=== PATIENT | male | born 1965 | race Caucasian/White ===

== ENCOUNTER 2019-07-23 19:26 | Inpatient (IN) | payer MEDICAID, OTHER ==
[~2019-07-23] VITALS: Ht 172.7 cm; Wt 80.0 kg
[~2019-07-23 19:26] MED LIST: BACL10TA PO; DILT180C66 PO; HYDR-4353 PO; LISI-600 PO; LORA10TA65 PO; MELO-100 PO; MOME17SP BOTHNARES; PANT40TA4 PO
[2019-07-23] MEDS ORDERED: normal saline 1000ML IV soln IV ONE (20:50)
[2019-07-23 21:22] LABS: BASOPHILS # (AUTO) 0.1 X10'3 (0-0.2); BASOPHILS % (AUTO) 0.6 % (0-1); EOSINOPHILS # (AUTO) 0.1 X10'3 (0-0.9); EOSINOPHILS % (AUTO) 0.5 % (0-6); HEMATOCRIT 43.1 % (42.0-52.0); HEMOGLOBIN 14.6 g/dl (14.0-17.9); LYMPHOCYTES # (AUTO) 1.7 X10'3 (1.1-4.8); MEAN CORPUSCULAR HGB CONC 33.8 g/dL (33.0-36.5); MEAN CORPUSCULAR VOLUME 88.6 FL (78-98); MEAN PLATELET VOLUME 7.7 FL (7.4-10.4); MONOCYTES # (AUTO) 1.7 X10'3 (0-0.9); MONOCYTES % (AUTO) 10.9 % (2-12); NEUTROPHILS # (AUTO) 11.9 X10'3 (1.8-7.7); PLATELET COUNT 400 X10'3 (140-440); RED BLOOD COUNT 4.87 X10'6 (4.70-6.10); RED CELL DISTRIBUTION WIDTH 14.9 % (11.5-14.5); WHITE BLOOD COUNT 15.4 X10'3 (4.5-11.0)
[2019-07-23 21:33] LABS: ALANINE AMINOTRANSFERASE 62 U/L (12-78); ALBUMIN 4.5 G/DL (3.4-5.0); ALKALINE PHOSPHATASE 88 IU/L (46-116); ANION GAP 18 (8-16); ASPARTATE AMINO TRANSFERASE 28 U/L (10-37); BILIRUBIN,TOTAL 0.5 MG/DL (0.1-1.0); BLOOD UREA NITROGEN 35 MG/DL (7-18); CALCIUM 9.3 MG/DL (8.5-10.1); CHLORIDE 95 MMOL/L (99-107); CREATININE 3.49 MG/DL (0.60-1.10); GLUCOSE 94 MG/DL (70-104); MAGNESIUM 2.2 MG/DL (1.5-2.4); POTASSIUM 4.3 MMOL/L (3.5-5.1); SODIUM 130 MMOL/L (135-145); TOTAL CARBON DIOXIDE 17.3 MMOL/L (24-32); TOTAL PROTEIN 8.9 G/DL (6.4-8.2); eGFR 19 ML/MIN
[2019-07-23] MEDS ORDERED: SIMV10TA2 PO (22:10)
[2019-07-23] MEDS ORDERED: UNABLE TO OBTAIN (22:13)
[2019-07-23] MEDS ORDERED: magnesium Cl slow-release 64mg tablet PO PRN (22:20)
[2019-07-23] MEDS ORDERED: magnesium 4gm in 100ml NS 100 ML IV PRN (22:20)
[2019-07-23] MEDS ORDERED: potassium Cl 20 mEq SR tablet PO PRN ×2 (22:20)
[2019-07-23] MEDS ORDERED: acetaminophen 325mg tablet PO PRN ×2 (22:20)
[2019-07-23] MEDS ORDERED: magnesium hydroxide 30ml (MOM) UD suspension PO PRN (22:20)
[2019-07-23] MEDS ORDERED: ondansetron/PF 4mg/2ml inj IV PRN (22:20)
[2019-07-23] MEDS ORDERED: morphine 2 MG/ML inj. syringe IV PRN ×2 (22:20)
[2019-07-23] MEDS ORDERED: mag hydrox/Alum hydrox/simeth 30ml oral suspension PO PRN (22:20)
[2019-07-23] MEDS ORDERED: potassium CL 10mEq/100ml bag 100 ML IV PRN ×2 (22:20)
[2019-07-23] MEDS ORDERED: magnesium 2GM in 50ml NS 50 ML IV PRN (22:20)
--- NOTE | 2019-07-23 22:23 | NUR ---
PT MOVED FROM CALLEJAS 12 TO BED 14. PT AWAITING HOSPITALIST
--- NOTE | 2019-07-23 22:31 | NUR ---
[facility] CALLED AND REPORTS THE ONLY RECENT MEDS PT HAS FILLED IS NORCO, TRAZADONE, GABAPENTIN. PT OTHERWISE HAD MANY OTHER MEDS THAT HAVE NOT BEEN FILLED SINCE FEBRUARY. PT REPORTS THAT HE IS HAVING INSURANCE ISSUES AND THAT IS WHY HE HAS NOT FILLED MANY OF HIS MEDS (REPORTS CREON FOR HIS PANCREAS, A HEART PILL THAT IS "ORANGE AND WHITE".
[2019-07-23] MEDS: normal saline 1000ml 1,000 ML IV SCH (23:01)
--- NOTE | 2019-07-23 23:30 | NUR ---
I have received report from Cal VILLANUEVA and had the opportunity to ask questions and assume patient care.
[2019-07-23 23:45] VITALS: BP 145/78
[2019-07-24] MEDS ORDERED: fluticasone nasal spray 16GM bottle NS PRN (01:05)
[2019-07-24] MEDS ORDERED: baclofen 10mg tablet PO PRN (01:15)
[2019-07-24 01:39] LABS: CLARITY,URINE CLEAR (Clear); COLOR,URINE YELLOW (Yellow); GLUCOSE, URINE 100 mg/dl (Neg); KETONES,URINE 15 mg/dl (Neg); LEUKOCYTE ESTERASE ,URINE NEGATIVE (Neg); NITRITES, URINE NEGATIVE (Neg); OCCULT BLOOD,URINE TRACE-INTACT (Neg); PH,URINE 5.5 (4.8-8.0); PROTEIN,URINE NEGATIVE (Neg); UROBILINOGEN,URINE 0.2 E.U/dL (0.2-1.0)
[2019-07-24 01:40] LABS: UA COLLECTION TYPE URINAL
[2019-07-24 01:47] LABS: BACTERIA,URINE NONE SEEN /HPF (Neg); RBC,URINE 0-2 /HPF (0-2); WBC,URINE NONE SEEN /HPF (0-4)
[2019-07-24 01:48] LABS: SQUAMOUS EPITHELIAL CELL,UR FEW /LPF (FEW); TOTAL PROTEIN,URINE RANDOM 27.8 MG/DL
[2019-07-24 02:04] LABS: UA EOSINOPHILS NO EOS /HPF
[2019-07-24 05:50] LABS: BASOPHILS # (AUTO) 0.1 X10'3 (0-0.2); BASOPHILS % (AUTO) 0.5 % (0-1); EOSINOPHILS % (AUTO) 0.2 % (0-6); HEMATOCRIT 37.6 % (42.0-52.0); HEMOGLOBIN 12.8 g/dl (14.0-17.9); LYMPHOCYTES # (AUTO) 0.8 X10'3 (1.1-4.8); LYMPHOCYTES % (AUTO) 7.4 % (21-51); MEAN CORPUSCULAR HEMOGLOBIN 30.3 PG (27.0-31.0); MEAN CORPUSCULAR HGB CONC 33.9 g/dL (33.0-36.5); MEAN CORPUSCULAR VOLUME 89.5 FL (78-98); MEAN PLATELET VOLUME 7.9 FL (7.4-10.4); MONOCYTES # (AUTO) 0.9 X10'3 (0-0.9); MONOCYTES % (AUTO) 8.8 % (2-12); NEUTROPHILS % (AUTO) 83.1 % (42-75); PLATELET COUNT 306 X10'3 (140-440); RED CELL DISTRIBUTION WIDTH 14.6 % (11.5-14.5); WHITE BLOOD COUNT 10.8 X10'3 (4.5-11.0)
[2019-07-24 06:00] VITALS: BP 117/59
[2019-07-24 06:16] LABS: ALBUMIN 3.6 G/DL (3.4-5.0); ANION GAP 16 (8-16); BLOOD UREA NITROGEN 29 MG/DL (7-18); BUN/CREATININE RATIO 11.2 (5.4-32.0); CALCIUM 9.5 MG/DL (8.5-10.1); CHLORIDE 103 MMOL/L (99-107); CREATININE 2.58 MG/DL (0.60-1.10); GLUCOSE 97 MG/DL (70-104); MAGNESIUM 2.4 MG/DL (1.5-2.4); POTASSIUM 3.8 MMOL/L (3.5-5.1); SODIUM 138 MMOL/L (135-145); TOTAL CARBON DIOXIDE 19.2 MMOL/L (24-32); eGFR 26 ML/MIN
--- NOTE | 2019-07-24 06:28 | NUR ---
Problems reprioritized. Patient report given, questions answered & plan of care reviewed with Jazmyn VILLANUEVA.
--- NOTE | 2019-07-24 06:34 | NUR ---
Patient in room ORTHO 4013. I have received report from Patricia and had the opportunity to ask questions and assume patient care.
[2019-07-24] MEDS: K and/or MAG REPLACEMENT MC SCH (08:00)
[2019-07-24] MEDS: heparin, porcine 5000 units/ml vial SQ SCH ×2 (08:00→21:53)
[2019-07-24] MEDS: normal saline 1000ml 1,000 ML IV SCH ×2 (08:54→21:53)
[2019-07-24] MEDS: diltiazem 30mg tablet PO SCH ×3 (09:03→21:52)
[2019-07-24] MEDS: loratadine 10mg tablet PO SCH (09:04)
[2019-07-24] MEDS: pantoprazole 40mg Tablet.DR PO SCH (09:05)
[2019-07-24] MEDS: HYDROcodone/acetaminophen 5mg/325mg tablet PO PRN ×2 (09:08→21:53)
[2019-07-24 10:00] VITALS: BP 132/73
[2019-07-24] MEDS ORDERED: FLU VACC QS2019-20 36MOS UP/PF 60 MCG/0.5 ML SYRINGE IMVAC ONE (10:00)
--- NOTE | 2019-07-24 12:16 | NUR ---
Patient report given, questions answered & plan of care reviewed with
--- NOTE | 2019-07-24 12:22 | NUR ---
Student Medication Administration:For this medication-pass time frame 5998-0658, all medications were reviewed,administered and documented per hospital policy by Trina Dutton. Student documentation:I have reviewed and agree with all interventions, assessments performed and documented by Trina Dutton.
[2019-07-24 18:00] VITALS: BP 146/87
[2019-07-24] MEDS ORDERED: atorvastatin 10mg tablet PO SCH (21:00)
[2019-07-24 22:00] VITALS: BP 155/99
[2019-07-25] MEDS: normal saline 1000ml 1,000 ML IV SCH (04:48)
--- NOTE | 2019-07-25 05:10 | NUR ---
FLU vaccine given to patient this morning to the right deltoid.
[2019-07-25 06:00] VITALS: BP 154/90
[2019-07-25 06:59] LABS: BASOPHILS # (AUTO) 0.1 X10'3 (0-0.2); EOSINOPHILS # (AUTO) 0.2 X10'3 (0-0.9); EOSINOPHILS % (AUTO) 2.4 % (0-6); HEMATOCRIT 37.4 % (42.0-52.0); HEMOGLOBIN 12.5 g/dl (14.0-17.9); LYMPHOCYTES # (AUTO) 1.7 X10'3 (1.1-4.8); LYMPHOCYTES % (AUTO) 24.6 % (21-51); MEAN CORPUSCULAR HEMOGLOBIN 30.1 PG (27.0-31.0); MEAN CORPUSCULAR HGB CONC 33.5 g/dL (33.0-36.5); MEAN PLATELET VOLUME 8.5 FL (7.4-10.4); MONOCYTES # (AUTO) 0.8 X10'3 (0-0.9); MONOCYTES % (AUTO) 11.3 % (2-12); NEUTROPHILS # (AUTO) 4.2 X10'3 (1.8-7.7); NEUTROPHILS % (AUTO) 60.7 % (42-75); PLATELET COUNT 315 X10'3 (140-440); RED BLOOD COUNT 4.16 X10'6 (4.70-6.10); RED CELL DISTRIBUTION WIDTH 14.8 % (11.5-14.5); WHITE BLOOD COUNT 6.9 X10'3 (4.5-11.0)
--- NOTE | 2019-07-25 07:00 | NUR ---
Patient in room ORTHO 4013. I have received report from Krissy VILLANUEVA and had the opportunity to ask questions and assume patient care.
[2019-07-25 07:13] LABS: ALBUMIN 3.3 G/DL (3.4-5.0); ANION GAP 12 (8-16); BLOOD UREA NITROGEN 21 MG/DL (7-18); BUN/CREATININE RATIO 14.8 (5.4-32.0); CALCIUM 9.1 MG/DL (8.5-10.1); CHLORIDE 105 MMOL/L (99-107); CREATININE 1.42 MG/DL (0.60-1.10); GLUCOSE 90 MG/DL (70-104); MAGNESIUM 2.2 MG/DL (1.5-2.4); POTASSIUM 3.8 MMOL/L (3.5-5.1); SODIUM 138 MMOL/L (135-145); TOTAL CARBON DIOXIDE 20.8 MMOL/L (24-32); eGFR 52 ML/MIN
[2019-07-25] MEDS: pantoprazole 40mg Tablet.DR PO SCH (07:59)
[2019-07-25] MEDS: diltiazem 30mg tablet PO SCH ×2 (07:59→14:58)
[2019-07-25] MEDS: loratadine 10mg tablet PO SCH (07:59)
[2019-07-25] MEDS: K and/or MAG REPLACEMENT MC SCH (08:00)
[2019-07-25] MEDS: heparin, porcine 5000 units/ml vial SQ SCH (08:01)
[2019-07-25 10:00] VITALS: BP 146/93
[2019-07-25 11:22] VITALS: BP 138/96
--- NOTE | 2019-07-25 11:26 | NUR ---
Student documentation: I have reviewed all interventions, assessments performed and documented by Jostin Urias. Student Medication Administration: For this medication-pass time frame, all medication were reviewed, dispensed, administered and documented per hospital policy by Jostin Urias.
[2019-07-25 13:43] LABS: ALBUMIN 3.8 G/DL (3.4-5.0); ANION GAP 12 (8-16); BLOOD UREA NITROGEN 16 MG/DL (7-18); BUN/CREATININE RATIO 12.1 (5.4-32.0); CALCIUM 9.3 MG/DL (8.5-10.1); CHLORIDE 104 MMOL/L (99-107); CREATININE 1.32 MG/DL (0.60-1.10); GLUCOSE 94 MG/DL (70-104); POTASSIUM 3.8 MMOL/L (3.5-5.1); SODIUM 137 MMOL/L (135-145); TOTAL CARBON DIOXIDE 21.3 MMOL/L (24-32); eGFR 57 ML/MIN
--- NOTE | 2019-07-25 17:04 | NUR ---
patient discharged, IV taken out, went over discharge information, wheeled out by wheelchair in stable condition.
== END 2019-07-25 17:00 | disposition home or self-care (01) | DRG 682 ==
LOC: ER 19:27 → ORTHO 4S 22:32 → CMPBEDREQ 23:08
PROVIDERS: ADMIT Hospitalist; ATTEND Family Medicine
DX: N17.0 Acute kidney failure with tubular necrosis (principal); G93.41 Metabolic encephalopathy; J90 Pleural effusion, not elsewhere classified; E87.1 Hypo-osmolality and hyponatremia; D72.823 Leukemoid reaction; D72.829 Elevated white blood cell count, unspecified; E78.00 Pure hypercholesterolemia, unspecified; E78.5 Hyperlipidemia, unspecified; E86.0 Dehydration; I10 Essential (primary) hypertension; K57.90 Diverticulosis of intestine, part unspecified, without perforation or abscess without bleeding; F12.90 Cannabis use, unspecified, uncomplicated; G89.29 Other chronic pain; M54.2 Cervicalgia; M54.9 Dorsalgia, unspecified; Z87.442 Personal history of urinary calculi; Z23 Encounter for immunization; Z79.899 Other long term (current) drug therapy
CPT/HCPCS: 36415; 70551; 71045; 76775; 80048; 80053; 81001; 82570; 83735; 83935; 84156; 84300; 85025; 87081; 87207; 93306; 93880; 99285; G0378; J1644; J7030; Q2037

== ENCOUNTER 2020-08-12 12:07 | Inpatient (IN) | payer MEDICAID ==
[~2020-08-12] VITALS: Ht 172.7 cm; Wt 97.2 kg
[~2020-08-12 12:07] MED LIST changes: -MELO-100 PO; -PANT40TA4 PO; +PANT40TA54 PO; +SIMV10TA2 PO; +etomidate 2mg/ml inj. ONE; +rocuronium 10mg/ml inj IV ONE
[2020-08-12 12:57] LABS: BASOPHILS # (AUTO) 0.3 X10'3 (0-0.2); BASOPHILS % (AUTO) 0.9 % (0-1); EOSINOPHILS % (AUTO) 0 % (0-6); HEMATOCRIT 34.6 % (42.0-52.0); HEMOGLOBIN 11.3 g/dl (14.0-17.9); LYMPHOCYTES # (AUTO) 0.6 X10'3 (1.1-4.8); LYMPHOCYTES % (AUTO) 1.9 % (21-51); MEAN CORPUSCULAR HEMOGLOBIN 28.3 PG (27.0-31.0); MEAN CORPUSCULAR HGB CONC 32.7 g/dL (33.0-36.5); MEAN CORPUSCULAR VOLUME 86.5 FL (78-98); MEAN PLATELET VOLUME 7.8 FL (7.4-10.4); MONOCYTES # (AUTO) 1.3 X10'3 (0-0.9); MONOCYTES % (AUTO) 4.3 % (2-12); NEUTROPHILS # (AUTO) 29.2 X10'3 (1.8-7.7); NEUTROPHILS % (AUTO) 92.9 % (42-75); PLATELET COUNT 543 X10'3 (140-440); RED CELL DISTRIBUTION WIDTH 18.6 % (11.5-14.5)
[2020-08-12 12:59] LABS: WHITE BLOOD COUNT 31.5 X10'3 (4.5-11.0)
[2020-08-12] MEDS ORDERED: CefTRIAXone/D5W-Rocephin 1gm 50 ML IV ONE (13:05)
[2020-08-12] MEDS ORDERED: azithromycin/NS 500mg/250ml 250 ML IV ONE (13:05)
[2020-08-12] MEDS ORDERED: normal saline 1000ML IV soln IVB ONE (13:05)
[2020-08-12 13:15] LABS: ALANINE AMINOTRANSFERASE 39 U/L (12-78); ALBUMIN 3.8 G/DL (3.4-5.0); ALBUMIN/GLOBULIN RATIO 0.7 (1.1-1.5); ALKALINE PHOSPHATASE 111 IU/L (46-116); ANION GAP 21 (8-16); ASPARTATE AMINO TRANSFERASE 67 U/L (10-37); BILIRUBIN,TOTAL 0.4 MG/DL (0.1-1.0); BLOOD UREA NITROGEN 47 MG/DL (7-18); BUN/CREATININE RATIO 7.7 (5.4-32.0); CALCIUM 9.8 MG/DL (8.5-10.1); CHLORIDE 87 MMOL/L (99-107); GLUCOSE 142 MG/DL (70-104); POTASSIUM 4.7 MMOL/L (3.5-5.1); SODIUM 128 MMOL/L (135-145); TOTAL CARBON DIOXIDE 20.5 MMOL/L (24-32); TOTAL PROTEIN 9.1 G/DL (6.4-8.2); eGFR 10 ML/MIN
[2020-08-12 13:24] LABS: ANISOCYTOSIS 2+; BANDS% (MANUAL) 12 % (0-10); LARGE PLATELETS FEW; LYMPHOCYTES % (MANUAL) 1 % (21-51); METAMYLEOCYTES% (MANUAL) 1 % (0-0); MONOCYTES % (MANUAL) 5 % (2-12); NEUTROPHILS % (MANUAL) 81 % (42-75); PLATELET ESTIMATE INCREASED; TOTAL CELLS COUNTED 100
--- NOTE | 2020-08-12 13:50 | NUR ---
RT AT BEDSIDE TO OBTAIN ABG, BIPAP IN PLACE FIO2 50%, SPO2 99%.
[2020-08-12 14:01] LABS: ABG BASE EXCESS -6.4 mmol/L (-2.0-2.0); ABG HCO3 17.5 mmol/L (22.0-26.0); ABG PO2 (T) 79.6 mmHg (75.0-100.0); FCOHb 0.3 % (0.0-3.9); FMetHb 0.1 % (0.0-1.5); FO2Hb 93.6 % (94-97); RESPIRATORY RATE 20 b/min; TIDAL VOLUME 621 mL; TOTAL HEMOGLOBIN 11.6 G/dl (14.0-18.0)
--- NOTE | 2020-08-12 14:16 | NUR ---
EX [facility]IMARY CONTACT [phone].
--- NOTE | 2020-08-12 14:19 | NUR ---
ABG RESULTS GIVEN TO DR. DURAN. PER DR. DURAN PATIENT DOES NOT NEED BIPAP. PATIENT PLACED ON 5L NC, SPO2 IN MID TO HIGH 90'S. NO SOB OR DISTRESS NOTED.
--- NOTE | 2020-08-12 14:37 | NUR ---
BIPAP TAKEN OFF BY DR DURAN AND PLACED ON O2 6L NC. MOMENTS LATER PATIENT SPO2 88%, AND STATED HE KEEPS "PASSING OUT". PLACED BACK ON BIPAP FIO2 50%, SPO2 97%. DR DURAN MADE AWARE.
[2020-08-12] MEDS ORDERED: LIPA1CAP18 PO (14:47)
[2020-08-12] MEDS ORDERED: GABA300C PO (14:47)
[2020-08-12] MEDS ORDERED: FLUT9.9S3 (14:47)
[2020-08-12] MEDS ORDERED: PANT-47 PO (14:47)
[2020-08-12] MEDS ORDERED: BACL10TA7 PO (14:47)
[2020-08-12] MEDS ORDERED: TRAZ-251 PO (14:47)
[2020-08-12] MEDS ORDERED: NORT25CA PO (14:47)
[2020-08-12] MEDS ORDERED: LORA10TA7 PO (14:47)
[2020-08-12] MEDS ORDERED: HYDR-3973 PO (14:47)
[2020-08-12] MEDS ORDERED: LISI-600 PO (14:47)
[2020-08-12] MEDS ORDERED: HYDR25TA4 PO (14:47)
[2020-08-12] MEDS ORDERED: SIMV-42 PO (14:47)
[2020-08-12] MEDS ORDERED: dextrose 50%-water 50ml dispensing syringe IV PRN (14:50)
[2020-08-12] MEDS ORDERED: magnesium Cl slow-release 64mg tablet PO PRN (14:50)
[2020-08-12] MEDS ORDERED: magnesium 4gm in 100ml NS 100 ML IV PRN (14:50)
[2020-08-12] MEDS ORDERED: ondansetron/PF 4mg/2ml inj IV PRN (14:50)
[2020-08-12] MEDS ORDERED: thiamine 100mg/ml 2ml inj. IV ONE (14:50)
[2020-08-12] MEDS ORDERED: magnesium 2GM in 50ml NS 50 ML IV PRN (14:50)
[2020-08-12] MEDS ORDERED: potassium CL 10mEq/100ml bag 100 ML IV PRN ×2 (14:50)
[2020-08-12] MEDS ORDERED: LORazepam 1 MG tablet PO PRN (14:50)
[2020-08-12] MEDS ORDERED: haloperidol 5mg tablet PO PRN (14:50)
[2020-08-12] MEDS ORDERED: potassium Cl 20 mEq SR tablet PO PRN (14:50)
[2020-08-12] MEDS ORDERED: acetaminophen 325mg tablet PO PRN (14:50)
[2020-08-12] MEDS ORDERED: haloperidol lactate 5mg/ml inj IM PRN (14:50)
[2020-08-12] MEDS: normal saline 1000ml 1,000 ML IV SCH (15:37)
--- NOTE | 2020-08-12 16:31 | NUR ---
Called ED for report, was told they would have to call me back.
--- NOTE | 2020-08-12 16:40 | NUR ---
promotional table spacer PAGER ID: [phone] MESSAGE: Rm [id number], Sudhir. Pt is coming up from ED on Bipap and we need an order for the floor please. Thank you, Britt [phone]
--- NOTE | 2020-08-12 17:27 | NUR ---
PAGER ID: [phone] MESSAGE: [id number], Sudhir. Pt O2sat down to 60s placed on mask and RT evaluated and needs Bipap, Can you please put in a Bipap order for the floor priya. Britt [phone]
--- NOTE | 2020-08-12 17:35 | NUR ---
promotional table spacer PAGER ID: [phone] MESSAGE: Clarence [id number]. Would you like an ABG for this patient going on Bipap? Britt [phone]
[2020-08-12] MEDS ORDERED: vancomycin/NS 1 GM ADD-VANTAGE 250 ML X 1 DOSE IV ONE (17:40)
[2020-08-12] MEDS ORDERED: vancomycin/NS 1 GM ADD-VANTAGE 250 ML IV PRN (17:40)
[2020-08-12] MEDS ORDERED: furosemide 40mg/4ml inj IV ONE (17:55)
--- NOTE | 2020-08-12 18:36 | NUR ---
Problems reprioritized. Patient report given, questions answered & plan of care reviewed with Trang VILLANUEVA.
--- NOTE | 2020-08-12 18:50 | NUR ---
Patient in room PCU 3018. I have received report from Britt VILLANUEVA and had the opportunity to ask questions and assume patient care.
[2020-08-12 19:06] LABS: ABG HCO3 18.1 mmol/L (22.0-26.0); ABG OXYGEN SATURATION 93.2 % (94-97); ABG PCO2 (T) 30.7 mmHg (35.0-48.0); ABG PO2 (T) 71.3 mmHg (75.0-100.0); ALLEN'S TEST POSITIVE; FCOHb 0.3 % (0.0-3.9); FMetHb 0.2 % (0.0-1.5); FO2Hb 92.7 % (94-97); PATIENT TEMPERATURE 36.8; RESPIRATORY RATE 16 b/min; TOTAL HEMOGLOBIN 11.1 G/dl (14.0-18.0)
[2020-08-12 19:20] VITALS: BP 139/77
[2020-08-12] MEDS: heparin, porcine 5000 units/ml vial SQ SCH (19:33)
[2020-08-12] MEDS: docusate sod 100mg capsule PO SCH (19:47)
[2020-08-12 20:00] VITALS: BP 131/82
[2020-08-12] MEDS: K and/or MAG REPLACEMENT MC SCH (20:00)
[2020-08-12 22:00] VITALS: BP 136/73
[2020-08-12] MEDS: HYDROcodone/acetaminophen 5mg/325mg tablet PO PRN (22:47)
[2020-08-13] VITALS (7 sets, daily range): BP systolic 114–144; BP diastolic 59–80
[2020-08-13] MEDS ORDERED: piperacillin/tazo 3.375gm/50ml 50 ML IV SCH
[2020-08-13] MEDS: normal saline 1000ml 1,000 ML IV SCH ×3 (01:35→20:50)
[2020-08-13] MEDS: piperacillin/tazo 3.375gm/50ml 50 ML IV SCH ×3 (01:35→17:04)
--- NOTE | 2020-08-13 02:25 | NUR ---
Problems reprioritized. Patient report given, questions answered & plan of care reviewed with Rosy VILLANUEVA.
[2020-08-13] MEDS: VANCOMYCIN LEVEL IV SCH (02:27)
--- NOTE | 2020-08-13 02:30 | NUR ---
Received report from Mili VILLANUEVA. Will assume patient care.
[2020-08-13] MEDS: morphine 2 MG/ML inj. syringe IV PRN ×2 (03:37→15:24)
[2020-08-13 05:45] LABS: BASOPHILS % (AUTO) 0.2 % (0-1); EOSINOPHILS # (AUTO) 0.1 X10'3 (0-0.9); EOSINOPHILS % (AUTO) 0.4 % (0-6); HEMATOCRIT 32.2 % (42.0-52.0); HEMOGLOBIN 10.5 g/dl (14.0-17.9); LYMPHOCYTES # (AUTO) 0.7 X10'3 (1.1-4.8); LYMPHOCYTES % (AUTO) 3.3 % (21-51); MEAN CORPUSCULAR HEMOGLOBIN 28.3 PG (27.0-31.0); MEAN CORPUSCULAR HGB CONC 32.6 g/dL (33.0-36.5); MEAN CORPUSCULAR VOLUME 86.9 FL (78-98); MEAN PLATELET VOLUME 7.9 FL (7.4-10.4); MONOCYTES # (AUTO) 1.3 X10'3 (0-0.9); MONOCYTES % (AUTO) 6.2 % (2-12); NEUTROPHILS # (AUTO) 19.5 X10'3 (1.8-7.7); NEUTROPHILS % (AUTO) 89.9 % (42-75); PLATELET COUNT 464 X10'3 (140-440); WHITE BLOOD COUNT 21.7 X10'3 (4.5-11.0)
[2020-08-13] MEDS ORDERED: ipratropium/albuterol 3ml nebule NEB PRN (05:55)
[2020-08-13 06:03] LABS: ALBUMIN 3.1 G/DL (3.4-5.0); ANION GAP 19 (8-16); BLOOD UREA NITROGEN 45 MG/DL (7-18); BUN/CREATININE RATIO 12.8 (5.4-32.0); CALCIUM 9.3 MG/DL (8.5-10.1); CHLORIDE 96 MMOL/L (99-107); CREATININE 3.52 MG/DL (0.60-1.10); GLUCOSE 85 MG/DL (70-104); MAGNESIUM 2.2 MG/DL (1.5-2.4); POTASSIUM 3.7 MMOL/L (3.5-5.1); SODIUM 136 MMOL/L (135-145); TOTAL CARBON DIOXIDE 21.1 MMOL/L (24-32); eGFR 18 ML/MIN
--- NOTE | 2020-08-13 06:05 | NUR ---
Problems reprioritized. Patient report given, questions answered & plan of care reviewed with Alexander VILLANUEVA.
--- NOTE | 2020-08-13 06:13 | NUR ---
Problems reprioritized. Patient report given, questions answered & plan of care reviewed with Rosy VILLANUEVA.
[2020-08-13] MEDS: docusate sod 100mg capsule PO SCH ×2 (07:55→19:13)
[2020-08-13] MEDS: pantoprazole 40mg Tablet.DR PO SCH (07:55)
[2020-08-13] MEDS: heparin, porcine 5000 units/ml vial SQ SCH ×2 (07:56→19:15)
[2020-08-13] MEDS: LIPASE/PROTEASE/AMYLASE 16,800 UNIT CAPSULE.DR PO SCH ×4 (08:00→20:27)
[2020-08-13] MEDS: K and/or MAG REPLACEMENT MC SCH ×2 (08:00→19:19)
--- NOTE | 2020-08-13 15:30 | NUR ---
Page sent to Dr. Stevneson: PAGER ID: [phone] MESSAGE: [id number] Adeel Peguero: Patient's HR is 120's 130's, no cardiac meds have been given, please advise. Loreta Ayala [phone] Addendum: 08/13/20 at 1837 by Loreta Main RN Received verbal orders to change RT treatment medication from albuterol to xopenex
--- NOTE | 2020-08-13 18:10 | NUR ---
Problems reprioritized. Patient report given, questions answered & plan of care reviewed with Luciana VILLANUEVA.
--- NOTE | 2020-08-13 18:12 | NUR ---
Patient in room PCU 3018. I have received report from Loreta VILLANUEVA and had the opportunity to ask questions and assume patient care.
[2020-08-13 18:53] LABS: CLARITY,URINE SLIGHTLY CLOUDY (Clear); COLOR,URINE YELLOW (Yellow); GLUCOSE, URINE NEGATIVE (Neg); KETONES,URINE NEGATIVE (Neg); LEUKOCYTE ESTERASE ,URINE NEGATIVE (Neg); NITRITES, URINE NEGATIVE (Neg); OCCULT BLOOD,URINE MODERATE (Neg); PH,URINE 5.5 (4.8-8.0); PROTEIN,URINE 30 mg/dl (Neg); UROBILINOGEN,URINE 0.2 E.U/dL (0.2-1.0)
[2020-08-13 18:59] LABS: UA COLLECTION TYPE CLN CATCH MIDSTREAM
[2020-08-13 19:12] LABS: BACTERIA,URINE NONE SEEN /HPF (Neg); RBC,URINE 0-2 /HPF (0-2); SQUAMOUS EPITHELIAL CELL,UR FEW /LPF (FEW); WBC,URINE NONE SEEN /HPF (0-4)
[2020-08-13] MEDS: lactobacillus rhamnosus 10,000 MMU CELLS/CAPSULE PO SCH (19:13)
[2020-08-13] MEDS: levalbuterol 0.63mg/3ml nebule IH SCH (19:53)
[2020-08-13] MEDS: traZODone 50mg tablet PO SCH (20:27)
[2020-08-13] MEDS: atorvastatin 10mg tablet PO SCH (20:27)
[2020-08-14] VITALS (7 sets, daily range): BP systolic 141–166; BP diastolic 86–107
[2020-08-14] MEDS: piperacillin/tazo 3.375gm/50ml 50 ML IV SCH ×3 (00:14→16:09)
[2020-08-14] MEDS: VANCOMYCIN LEVEL IV SCH (02:42)
[2020-08-14] MEDS: levalbuterol 0.63mg/3ml nebule IH SCH ×4 (03:00→21:56)
[2020-08-14 05:53] LABS: BASOPHILS # (AUTO) 0.1 X10'3 (0-0.2); BASOPHILS % (AUTO) 0.4 % (0-1); EOSINOPHILS % (AUTO) 0.1 % (0-6); HEMATOCRIT 33.3 % (42.0-52.0); HEMOGLOBIN 10.9 g/dl (14.0-17.9); LYMPHOCYTES # (AUTO) 0.6 X10'3 (1.1-4.8); LYMPHOCYTES % (AUTO) 3.1 % (21-51); MEAN CORPUSCULAR HEMOGLOBIN 28.7 PG (27.0-31.0); MEAN CORPUSCULAR HGB CONC 32.6 g/dL (33.0-36.5); MEAN CORPUSCULAR VOLUME 88.1 FL (78-98); MEAN PLATELET VOLUME 7.7 FL (7.4-10.4); MONOCYTES % (AUTO) 5.6 % (2-12); NEUTROPHILS # (AUTO) 16.4 X10'3 (1.8-7.7); NEUTROPHILS % (AUTO) 90.8 % (42-75); PLATELET COUNT 453 X10'3 (140-440); RED BLOOD COUNT 3.78 X10'6 (4.70-6.10); RED CELL DISTRIBUTION WIDTH 18.6 % (11.5-14.5); WHITE BLOOD COUNT 18.1 X10'3 (4.5-11.0)
[2020-08-14 06:01] LABS: ALBUMIN 2.9 G/DL (3.4-5.0); ANION GAP 20 (8-16); BLOOD UREA NITROGEN 36 MG/DL (7-18); BUN/CREATININE RATIO 20.3 (5.4-32.0); CALCIUM 9.7 MG/DL (8.5-10.1); CHLORIDE 98 MMOL/L (99-107); CREATININE 1.77 MG/DL (0.60-1.10); GLUCOSE 109 MG/DL (70-104); LACTATE DEHYDROGENASE 609 U/L (85-227); MAGNESIUM 2.1 MG/DL (1.5-2.4); POTASSIUM 3.4 MMOL/L (3.5-5.1); SODIUM 139 MMOL/L (135-145); TOTAL CARBON DIOXIDE 21.3 MMOL/L (24-32); VANCOMYCIN,TROUGH 5.2 UG/ML (6.0-14.0); eGFR 40 ML/MIN
--- NOTE | 2020-08-14 06:20 | NUR ---
Patient in room PCU 3018. I have received report from Luciana VILLANUEVA and had the opportunity to ask questions and assume patient care.
--- NOTE | 2020-08-14 06:25 | NUR ---
Patient in room PCU 3018. I have received report from Luciana VILLANUEVA and had the opportunity to ask questions and assume patient care.
[2020-08-14] MEDS: normal saline 1000ml 1,000 ML IV SCH (06:50)
[2020-08-14 07:14] LABS: ANISOCYTOSIS 2+; PLATELET ESTIMATE INCREASED
[2020-08-14] MEDS: heparin, porcine 5000 units/ml vial SQ SCH ×2 (07:41→20:26)
[2020-08-14] MEDS: lactobacillus rhamnosus 10,000 MMU CELLS/CAPSULE PO SCH ×2 (07:42→20:26)
[2020-08-14] MEDS: LIPASE/PROTEASE/AMYLASE 16,800 UNIT CAPSULE.DR PO SCH ×4 (07:42→20:27)
[2020-08-14] MEDS: docusate sod 100mg capsule PO SCH ×2 (07:42→20:00)
[2020-08-14] MEDS: pantoprazole 40mg Tablet.DR PO SCH (07:42)
[2020-08-14] MEDS: potassium Cl 20 mEq SR tablet PO PRN ×4 (07:42→20:28)
[2020-08-14] MEDS: K and/or MAG REPLACEMENT MC SCH ×2 (08:20→20:28)
[2020-08-14] MEDS ORDERED: vancomycin/NS 1 GM ADD-VANTAGE 250 ML IV SCH (09:00)
--- NOTE | 2020-08-14 09:07 | NUR ---
I TOOK PATIENT OFF OF BIPAP AND APPLIED OXYGEN VIA NC. OXYGEN SATURATION WAS FLUCTUATING BETWEEN 81-88, SO BIPAP WAS REAPPLIED AND OXYGEN SATURATION IMPROVED TO 99.. Addendum: 08/14/20 at 0910 by Kellie Vidal RN Amended: Links added.
[2020-08-14 09:24] LABS: TOTAL PROTEIN,URINE RANDOM 101.4 MG/DL
[2020-08-14] MEDS: morphine 2 MG/ML inj. syringe IV PRN (09:49)
[2020-08-14] MEDS: LORazepam 2 mg/ml vial IV PRN (12:27)
[2020-08-14] MEDS: loratadine 10mg tablet PO SCH (13:35)
[2020-08-14] MEDS: nortriptyline 25mg capsule PO SCH (13:36)
[2020-08-14] MEDS: lisinopril 20mg tablet PO SCH (13:38)
--- NOTE | 2020-08-14 18:00 | NUR ---
Orientee documentation: I have reviewed and agree with all interventions, assessments performed and documented by Kellie VILLANUEVA.
--- NOTE | 2020-08-14 18:15 | NUR ---
Problems reprioritized. Patient report given, questions answered & plan of care reviewed with Luciana VILLANUEVA.
--- NOTE | 2020-08-14 18:39 | NUR ---
Patient in room PCU 3018. I have received report from Danny VILLANUEVA and had the opportunity to ask questions and assume patient care.
[2020-08-14] MEDS: gabapentin 300mg capsule PO SCH (20:26)
[2020-08-14] MEDS: atorvastatin 10mg tablet PO SCH (20:27)
[2020-08-14] MEDS: traZODone 50mg tablet PO SCH (20:27)
[2020-08-15] MEDS: piperacillin/tazo 3.375gm/50ml 50 ML IV SCH ×3 (00:50→15:53)
[2020-08-15] MEDS ORDERED: carvedilol 6.25mg tablet PO ONE (01:15)
[2020-08-15 02:00] VITALS: BP 140/111
[2020-08-15] MEDS: levalbuterol 0.63mg/3ml nebule IH SCH ×4 (02:41→20:39)
--- NOTE | 2020-08-15 04:09 | NUR ---
Blood pressure and heart rate high, discussed with Dr. Cardenas. Coreg ordered.
[2020-08-15 06:00] VITALS: BP 160/100
--- NOTE | 2020-08-15 06:15 | NUR ---
Patient in room PCU 3018. I have received report from Luciana VILLANUEVA and had the opportunity to ask questions and assume patient care.
[2020-08-15 06:28] LABS: ALBUMIN 2.9 G/DL (3.4-5.0); BLOOD UREA NITROGEN 36 MG/DL (7-18); BUN/CREATININE RATIO 23.2 (5.4-32.0); CALCIUM 10.1 MG/DL (8.5-10.1); CREATININE 1.55 MG/DL (0.60-1.10); GLUCOSE 136 MG/DL (70-104); MAGNESIUM 2.2 MG/DL (1.5-2.4); TOTAL CARBON DIOXIDE 21.8 MMOL/L (24-32); eGFR 47 ML/MIN
--- NOTE | 2020-08-15 06:28 | NUR ---
Problems reprioritized. Patient report given, questions answered & plan of care reviewed with Danny VILLANUEVA and Kellie VILLANUEVA.
[2020-08-15 06:31] LABS: BASOPHILS % (AUTO) 0.1 % (0-1); EOSINOPHILS % (AUTO) 0.1 % (0-6); HEMATOCRIT 32.6 % (42.0-52.0); HEMOGLOBIN 10.6 g/dl (14.0-17.9); LYMPHOCYTES # (AUTO) 0.9 X10'3 (1.1-4.8); MEAN CORPUSCULAR HEMOGLOBIN 28.8 PG (27.0-31.0); MEAN CORPUSCULAR HGB CONC 32.6 g/dL (33.0-36.5); MEAN CORPUSCULAR VOLUME 88.6 FL (78-98); MEAN PLATELET VOLUME 7.9 FL (7.4-10.4); MONOCYTES # (AUTO) 1.7 X10'3 (0-0.9); MONOCYTES % (AUTO) 7.3 % (2-12); NEUTROPHILS # (AUTO) 20.7 X10'3 (1.8-7.7); NEUTROPHILS % (AUTO) 88.5 % (42-75); PLATELET COUNT 402 X10'3 (140-440); RED BLOOD COUNT 3.68 X10'6 (4.70-6.10); RED CELL DISTRIBUTION WIDTH 18.8 % (11.5-14.5); WHITE BLOOD COUNT 23.4 X10'3 (4.5-11.0)
[2020-08-15 06:47] LABS: ANION GAP 16 (8-16); CHLORIDE 104 MMOL/L (99-107); POTASSIUM 3.9 MMOL/L (3.5-5.1); SODIUM 142 MMOL/L (135-145)
--- NOTE | 2020-08-15 06:49 | NUR ---
Patient in room PCU 3018. I have received report from Luciana VILLANUEVA and had the opportunity to ask questions and assume patient care.
[2020-08-15] MEDS: fluticasone nasal spray 16GM bottle NS SCH (07:34)
[2020-08-15] MEDS: heparin, porcine 5000 units/ml vial SQ SCH ×2 (07:36→19:28)
[2020-08-15] MEDS: nortriptyline 25mg capsule PO SCH (07:37)
[2020-08-15] MEDS: LIPASE/PROTEASE/AMYLASE 16,800 UNIT CAPSULE.DR PO SCH ×2 (07:37→12:44)
[2020-08-15] MEDS: pantoprazole 40mg Tablet.DR PO SCH (07:37)
[2020-08-15] MEDS: gabapentin 300mg capsule PO SCH ×2 (07:38→19:27)
[2020-08-15] MEDS: docusate sod 100mg capsule PO SCH ×2 (07:38→19:29)
[2020-08-15] MEDS: lisinopril 20mg tablet PO SCH (07:38)
[2020-08-15] MEDS: loratadine 10mg tablet PO SCH (07:38)
[2020-08-15] MEDS: K and/or MAG REPLACEMENT MC SCH ×2 (08:00→20:00)
[2020-08-15] MEDS: lactobacillus rhamnosus 10,000 MMU CELLS/CAPSULE PO SCH ×2 (08:02→19:27)
--- NOTE | 2020-08-15 08:12 | NUR ---
PATIENTS 0800 CULTURELLE WOULD NOT SCAN AND I HAD TO ENTER IT MANUALLY
--- NOTE | 2020-08-15 08:53 | NUR ---
BED LOW AND LOCKED Addendum: 08/15/20 at 0855 by Kellie Vidal RN Amended: Links added.
--- NOTE | 2020-08-15 08:53 | NUR ---
BED LOW AND LOCKED, SLIP RESISTANT SOCKS ON, ROOM FREE OF CLUTTER, ALL ITEMS WITHIN REACH WELL CALL LIGHT, LIGHTING ADEQUATE... Addendum: 08/15/20 at 0855 by Kellie Vidal RN Amended: Links added.
--- NOTE | 2020-08-15 09:00 | NUR ---
PATIENT WAS CHANGED FROM BIPAP TO HIGH FLOW NC AT 45 O2 WITH FIO2 OF 50
[2020-08-15 11:00] VITALS: BP 142/94
--- NOTE | 2020-08-15 11:23 | NUR ---
PER DR. FOX OXYGEN FLOW RATE (VIA HIGH FLOW NC) WAS CHANGED FROM 45 TO 35 PATIENT CURRENTLY SATING AT 98 Addendum: 08/15/20 at 1133 by Kellie Vidal RN PER DR. BUSBY OXYGEN FLOW RATE (VIA HIGH FLOW NC) WAS CHANGED FROM 45 TO 35 PATIENT CURRENTLY SATING AT 98
[2020-08-15] MEDS ORDERED: LIPASE/PROTEASE/AMYLASE 10,500 units CAPSULE.DR PO SCH (11:49)
[2020-08-15] MEDS: LORazepam 2 mg/ml vial IV PRN (11:59)
[2020-08-15] MEDS: vancomycin/NS 1 GM ADD-VANTAGE 250 ML IV SCH ×2 (13:17→21:18)
[2020-08-15] MEDS ORDERED: LIPASE/PROTEASE/AMYLASE 10,500 units CAPSULE.DR PO ONE (13:25)
--- NOTE | 2020-08-15 15:11 | NUR ---
I have reviewed and agree with all medications administered and interventions performed by [facility] Student(ALESSIA JAMES
--- NOTE | 2020-08-15 15:35 | NUR ---
PATIENT WAS BLADDER SCANNED 459 WAS SEEN... I PROVIDED PT WITH URINAL, HE WAS NOT ABLE TO GO USING URINAL, CONDOM CATH WAS APPLIED...
[2020-08-15 16:23] VITALS: BP 137/98
[2020-08-15] MEDS: LIPASE/PROTEASE/AMYLASE 10,500 units CAPSULE.DR PO SCH (17:17)
[2020-08-15 18:00] VITALS: BP 151/72
--- NOTE | 2020-08-15 18:00 | NUR ---
Problems reprioritized. Patient report given, questions answered & plan of care reviewed with Yung VILLANUEVA.
--- NOTE | 2020-08-15 18:29 | NUR ---
Patient in room PCU 3023. I have received report from Danny VILLANUEVA and Foreign and had the opportunity to ask questions and assume patient care.
[2020-08-15] MEDS: atorvastatin 10mg tablet PO SCH (21:16)
[2020-08-15] MEDS: traZODone 50mg tablet PO SCH (21:17)
[2020-08-15 22:00] VITALS: BP 142/82
[2020-08-16] VITALS (7 sets, daily range): BP systolic 152–170; BP diastolic 53–126
[2020-08-16] MEDS: piperacillin/tazo 3.375gm/50ml 50 ML IV SCH ×3 (00:03→15:52)
[2020-08-16] MEDS: HYDROcodone/acetaminophen 5mg/325mg tablet PO PRN (02:27)
[2020-08-16] MEDS: levalbuterol 0.63mg/3ml nebule IH SCH ×4 (02:42→19:45)
--- NOTE | 2020-08-16 06:00 | NUR ---
Patient in room PCU 3023. I have received report from KAY Barragan and had the opportunity to ask questions and assume patient care.
[2020-08-16 06:13] LABS: ALBUMIN 2.6 G/DL (3.4-5.0); ANION GAP 16 (8-16); BLOOD UREA NITROGEN 42 MG/DL (7-18); BUN/CREATININE RATIO 26.6 (5.4-32.0); CALCIUM 9.8 MG/DL (8.5-10.1); CHLORIDE 109 MMOL/L (99-107); CREATININE 1.58 MG/DL (0.60-1.10); GLUCOSE 104 MG/DL (70-104); MAGNESIUM 2.2 MG/DL (1.5-2.4); POTASSIUM 3.2 MMOL/L (3.5-5.1); SODIUM 145 MMOL/L (135-145); TOTAL CARBON DIOXIDE 20.2 MMOL/L (24-32); eGFR 46 ML/MIN
[2020-08-16 06:15] LABS: BASOPHILS # (AUTO) 0.1 X10'3 (0-0.2); BASOPHILS % (AUTO) 0.3 % (0-1); EOSINOPHILS # (AUTO) 0.2 X10'3 (0-0.9); EOSINOPHILS % (AUTO) 1.3 % (0-6); HEMATOCRIT 32.5 % (42.0-52.0); HEMOGLOBIN 10.3 g/dl (14.0-17.9); LYMPHOCYTES # (AUTO) 1.5 X10'3 (1.1-4.8); LYMPHOCYTES % (AUTO) 7.9 % (21-51); MEAN CORPUSCULAR HEMOGLOBIN 27.8 PG (27.0-31.0); MEAN CORPUSCULAR HGB CONC 31.8 g/dL (33.0-36.5); MEAN CORPUSCULAR VOLUME 87.3 FL (78-98); MEAN PLATELET VOLUME 7.8 FL (7.4-10.4); MONOCYTES # (AUTO) 1.4 X10'3 (0-0.9); MONOCYTES % (AUTO) 7.4 % (2-12); NEUTROPHILS % (AUTO) 83.1 % (42-75); PLATELET COUNT 381 X10'3 (140-440); RED BLOOD COUNT 3.72 X10'6 (4.70-6.10); RED CELL DISTRIBUTION WIDTH 19.1 % (11.5-14.5); WHITE BLOOD COUNT 19.2 X10'3 (4.5-11.0)
--- NOTE | 2020-08-16 06:28 | NUR ---
Problems reprioritized. Patient report given, questions answered & plan of care reviewed with Andry VILLANUEVA.
[2020-08-16] MEDS: morphine 2 MG/ML inj. syringe IV PRN ×2 (06:33→19:30)
--- NOTE | 2020-08-16 07:22 | NUR ---
RT PAGED TO PATIENTS BEDSIDE DUE PT'S INCREASES RR ON BIPAP. PT'S HR 130'S SPO2 IN THE 90'S ON BIPAP (08/21). PT SHOWING NO SIGNS OF SOB OR DISTRESS DESPITE THE RATE. PT PUT ON HIGH FLOW TOWER 55L 60% SPO2 93%. RT WILL RETURN AT A LATER TIME TO MONITOR PT. Addendum: 08/16/20 at 0725 by Rach Bustillos RT Amended: Links added.
[2020-08-16] MEDS: LIPASE/PROTEASE/AMYLASE 10,500 units CAPSULE.DR PO SCH ×3 (07:26→17:53)
[2020-08-16] MEDS: lactobacillus rhamnosus 10,000 MMU CELLS/CAPSULE PO SCH ×2 (07:27→20:00)
[2020-08-16] MEDS: docusate sod 100mg capsule PO SCH ×2 (07:27→20:00)
[2020-08-16] MEDS: gabapentin 300mg capsule PO SCH ×2 (07:27→20:00)
[2020-08-16] MEDS: loratadine 10mg tablet PO SCH (07:27)
[2020-08-16] MEDS: nortriptyline 25mg capsule PO SCH (07:27)
[2020-08-16] MEDS: lisinopril 20mg tablet PO SCH (07:28)
[2020-08-16] MEDS: fluticasone nasal spray 16GM bottle NS SCH (07:28)
[2020-08-16] MEDS: pantoprazole 40mg Tablet.DR PO SCH (07:28)
[2020-08-16] MEDS: heparin, porcine 5000 units/ml vial SQ SCH ×2 (07:28→22:07)
--- NOTE | 2020-08-16 07:54 | NUR ---
Norberto EMERSON regarding patient RR at 40, HR at 130's, and increased confusion since yesterday. Addendum: 08/16/20 at 0758 by Andry Brito [facility] Patient RR at 30-40's, HR in 130's, more confused since yesterday. Thank you. Andry hudson [phone] Addendum: 08/16/20 at 0806 by Andry Brito RN ordered ABGabriel and FARIDAR
[2020-08-16] MEDS: K and/or MAG REPLACEMENT MC SCH ×2 (08:00→20:00)
[2020-08-16 08:31] LABS: ABG BASE EXCESS -4.1 mmol/L (-2.0-2.0); ABG HCO3 17.7 mmol/L (22.0-26.0); ABG OXYGEN SATURATION 90.8 % (94-97); ABG PCO2 (T) 24.3 mmHg (35.0-48.0); ABG PO2 (T) 60.3 mmHg (75.0-100.0); ALLEN'S TEST POSITIVE; FCOHb 0.2 % (0.0-3.9); FLOW 55 L/min; FMetHb 0.2 % (0.0-1.5); FO2Hb 90.4 % (94-97)
--- NOTE | 2020-08-16 08:43 | NUR ---
ABG results returned, MD informed. "7109N. Iris Peguero ABG shows respiratory alkalosis and patient is on day 4 of w/d, did you want to order severe ETOH protocol and Bicarb? Andry, Alberto, [id number]"
[2020-08-16] MEDS ORDERED: LORazepam 1 MG tablet PO PRN (09:05)
[2020-08-16] MEDS ORDERED: magnesium Cl slow-release 64mg tablet PO PRN (09:05)
[2020-08-16] MEDS ORDERED: haloperidol lactate 5mg/ml inj IM PRN (09:05)
[2020-08-16] MEDS ORDERED: potassium CL 10mEq/100ml bag 100 ML IV PRN (09:05)
[2020-08-16] MEDS ORDERED: thiamine 100mg/ml 2ml inj. IV ONE (09:05)
[2020-08-16] MEDS ORDERED: dextrose 50%-water 50ml dispensing syringe IV PRN (09:05)
[2020-08-16] MEDS ORDERED: magnesium 4gm in 100ml NS 100 ML IV PRN (09:05)
[2020-08-16] MEDS ORDERED: potassium Cl 20 mEq SR tablet PO PRN ×2 (09:05)
[2020-08-16] MEDS ORDERED: haloperidol 5mg tablet PO PRN (09:05)
[2020-08-16] MEDS ORDERED: thiamine inj. 100 MG in normal saline 100ml IV soln 99 ML IV ONE (09:20)
--- NOTE | 2020-08-16 10:23 | NUR ---
vanco and thiamine delayed as not compatiable with infusing Zosyn .
[2020-08-16] MEDS: vancomycin/NS 1 GM ADD-VANTAGE 250 ML IV SCH ×2 (12:22→22:08)
[2020-08-16] MEDS: LORazepam 2 mg/ml vial IV PRN ×8 (12:28→23:55)
--- NOTE | 2020-08-16 19:35 | NUR ---
3022M BETHANY ESCOBEDO - PT IS ON 50L / 60FIO2 INTERMITTENT DESATS TO 60% WITH RR IN 30S PEAK 60S. ADMIN'D 2MG MORPHINE AND 2MG ATIVAN INCREASE SATS TO 84-86%. CO2 30.7 PER ABG. SHOULD I ADDITIONALLY SEDATE W/ HALDOL OR +MORPHINE? [phone] YVETTE Addendum: 08/16/20 at 1936 by Eloy Valdes RN PAGE TO MARGARINE MAKER
[2020-08-16] MEDS ORDERED: morphine 2 MG/ML inj. syringe IV PRN (19:40)
--- NOTE | 2020-08-16 19:41 | NUR ---
administered haldol 5 IM to sedate patient respiratory rate per Dr. Michaels request. MD also stated she will adjust frequency on current morphine or ativan orders. Will continue to monitor. O2 saturations at 91% at this time with RR peaking at 60 patient on bipap. Addendum: 08/16/20 at 2020 by Eloy Valdes RN PULLED AND ADMINISTERED 4MG ATIVAN PER DR MICHAELS AT BEDSIDE DURING RAPID RESPONSE. PATIENT SATURATIONS AND RESPIRATORY RATE IMPROVING. MEDICATION ADMINISTERED UNDER 2MG Q4H ORDER. ADMINISTRATION COMMENT MADE. VERIFIED ALL RIGHTS OF MEDICATION ADMINISTRATION.
[2020-08-16 20:10] LABS: ABG BASE EXCESS -2.6 mmol/L (-2.0-2.0); ABG HCO3 19.7 mmol/L (22.0-26.0); ABG OXYGEN SATURATION 82.3 % (94-97); ABG PCO2 (T) 30.2 mmHg (35.0-48.0); ABG PO2 (T) 55.3 mmHg (75.0-100.0); FCOHb 0.1 % (0.0-3.9); FLOW 60 L/min; FMetHb 0.2 % (0.0-1.5); FO2Hb 82.1 % (94-97); PATIENT TEMPERATURE 39.4
[2020-08-16] MEDS ORDERED: acetaminophen 1,000mg/100ml IV 100 ML IV ONE (20:10)
[2020-08-16] MEDS ORDERED: furosemide 40mg/4ml inj IV ONE (20:15)
[2020-08-16] MEDS ORDERED: furosemide 40mg/4ml inj ONE (20:16)
--- NOTE | 2020-08-16 20:21 | NUR ---
Rapid response called on patient at 752pm. Pt in respiratory distress breathing in the high 40s, on heated high flow nasal cannula 80%/60L, saturations in low 80s, temperature 102.9. Pt was responsive and following commands. Per ABG results patient placed on BiPAP 16/9 and 80%, SpO2 94%.
[2020-08-16 20:27] LABS: BASOPHILS # (AUTO) 0.1 X10'3 (0-0.2); BASOPHILS % (AUTO) 0.6 % (0-1); EOSINOPHILS # (AUTO) 0.2 X10'3 (0-0.9); EOSINOPHILS % (AUTO) 0.8 % (0-6); HEMATOCRIT 33.3 % (42.0-52.0); HEMOGLOBIN 10.7 g/dl (14.0-17.9); LYMPHOCYTES # (AUTO) 1.5 X10'3 (1.1-4.8); LYMPHOCYTES % (AUTO) 6.5 % (21-51); MEAN CORPUSCULAR HGB CONC 32.2 g/dL (33.0-36.5); MEAN CORPUSCULAR VOLUME 86.9 FL (78-98); MEAN PLATELET VOLUME 7.8 FL (7.4-10.4); MONOCYTES # (AUTO) 1.3 X10'3 (0-0.9); MONOCYTES % (AUTO) 5.7 % (2-12); NEUTROPHILS # (AUTO) 20.4 X10'3 (1.8-7.7); NEUTROPHILS % (AUTO) 86.4 % (42-75); PLATELET COUNT 321 X10'3 (140-440); RED BLOOD COUNT 3.83 X10'6 (4.70-6.10); WHITE BLOOD COUNT 23.6 X10'3 (4.5-11.0)
[2020-08-16] MEDS ORDERED: VANCOMYCIN LEVEL IV ONE (20:30)
[2020-08-16 20:32] LABS: ALANINE AMINOTRANSFERASE 37 U/L (12-78); ALBUMIN 2.6 G/DL (3.4-5.0); ALBUMIN/GLOBULIN RATIO 0.5 (1.1-1.5); ALKALINE PHOSPHATASE 108 IU/L (46-116); ANION GAP 18 (8-16); ASPARTATE AMINO TRANSFERASE 50 U/L (10-37); BILIRUBIN,TOTAL 0.6 MG/DL (0.1-1.0); BLOOD UREA NITROGEN 32 MG/DL (7-18); BUN/CREATININE RATIO 21.9 (5.4-32.0); CALCIUM 9.5 MG/DL (8.5-10.1); CHLORIDE 110 MMOL/L (99-107); CREATININE 1.46 MG/DL (0.60-1.10); GLUCOSE 150 MG/DL (70-104); MAGNESIUM 2.1 MG/DL (1.5-2.4); POTASSIUM 3.7 MMOL/L (3.5-5.1); SODIUM 147 MMOL/L (135-145); TOTAL CARBON DIOXIDE 19.3 MMOL/L (24-32); eGFR 51 ML/MIN
[2020-08-16] MEDS: traZODone 50mg tablet PO SCH (21:00)
[2020-08-16] MEDS: atorvastatin 10mg tablet PO SCH (21:00)
[2020-08-16] MEDS: pantoprazole 40 MG vial IV SCH (22:07)
[2020-08-16 22:22] LABS: ANISOCYTOSIS 2+; PLATELET ESTIMATE NORMAL; TOTAL CELLS COUNTED 100
[2020-08-16 22:23] LABS: TARGET CELLS FEW
[2020-08-17] VITALS (21 sets, daily range): BP systolic 91–152; BP diastolic 56–98
[2020-08-17] MEDS: LORazepam 2 mg/ml vial IV PRN ×3 (00:18→00:53)
--- NOTE | 2020-08-17 00:40 | NUR ---
JENN EMERSON. Page Sent DISCUSSED WITH ACCE AND ICU SLASHER MACHINE OPERATOR ABOUT PT STATUS. REQUESTING ADDITIONAL SEDATION. ICU HAS NO BEDS AVAILABLE WITHOUT GIVING SLASHER MACHINE OPERATOR PATIENTS. ATTEMPTED TO CALL HOUSE SOUP TO WARN ABOUT LIKELY NEED FOR ICU BED. UNABLE TO REACH. WILL ATTEMPT AGAIN SHORTLY. promotional table spacer PAGER ID: [phone] MESSAGE: [email or web address] - BETHANY ESCOBEDO - PT SATS% 88% @ 95%FIO2 BIPAP, 20MG OF ATIVAN ADMINISTERED. IN THERE Q15M. RESPIRATORY RATE IN ~45s. PT SEDATED BUT WISH TO DECREASE RESP RATE. CAN I GET +MORPHINE FREQ ORDERS FOR AIRHUNGER OR PHENOBARB. [phone] YVETTE RN
[2020-08-17] MEDS ORDERED: phenobarbital inj 130 MG in normal saline 100ml IV soln 99 ML IV ONE (00:45)
[2020-08-17] MEDS: morphine 2 MG/ML inj. syringe IV PRN ×3 (01:03→01:39)
[2020-08-17] MEDS ORDERED: albuterol 2.5 MG/3 ML nebule NEB PRN (01:10)
[2020-08-17] MEDS ORDERED: propofol 1000mg/100ml bottle 100 ML IV ONE (01:19)
[2020-08-17] MEDS ORDERED: LORazepam 2 mg/ml vial IV PRN (01:20)
--- NOTE | 2020-08-17 01:29 | NUR ---
PT TRANSFERRED SEVERAL MINUTES AGO TO ICU FOR INTUBATION.
[2020-08-17] MEDS ORDERED: NORepinephrine 8mg/ 250ml NS 250 ML IV ONE (01:33)
[2020-08-17] MEDS ORDERED: normal saline 1000ml 1,000 ML IVB ONE ×2 (01:40)
[2020-08-17] MEDS ORDERED: albumin (human) 25% 100 ML IV solution IV ONE (01:40)
--- NOTE | 2020-08-17 01:47 | NUR ---
Page Sent TO promotional table spacer PAGER ID: [phone] MESSAGE: [id number] - TEDAMPARO BETHANY - PHENOBARB GTT ADMINISTERING 20MINS/60MINS, ADMIN 8MG OF MORPHINE TOTAL, PT RR SPIKING INTO 65-70S INTERMITTENTLY. 95%-100% FIO2, 88-92 O2%. PT WILL LIKELY NEED INTUBATION BEFORE END OF SHIFT. [phone] YVETTE VILLANUEVA Addendum: 08/17/20 at 0149 by Eloy Valdes RN DISCUSSED WITH DR. REDMAN PATIENT LIKELY NEED INTUBATING PROVIDED October PHONE NUMBER FOR CONSULTATION.
[2020-08-17 02:06] LABS: ABG BASE EXCESS -9.1 mmol/L (-2.0-2.0); ABG HCO3 18.4 mmol/L (22.0-26.0); ABG OXYGEN SATURATION 86.1 % (94-97); ABG PCO2 (T) 47.8 mmHg (35.0-48.0); ABG PO2 (T) 70.1 mmHg (75.0-100.0); ALLEN'S TEST POSITIVE; FCOHb 0.3 % (0.0-3.9); FMetHb 0.2 % (0.0-1.5); FO2Hb 85.7 % (94-97); PATIENT TEMPERATURE 37.6; PEEP 8 cm H2O; RESPIRATORY RATE 16 b/min; TIDAL VOLUME 500 mL; TOTAL HEMOGLOBIN 10.7 G/dl (14.0-18.0)
[2020-08-17 02:21] LABS: ABG BASE EXCESS -7.7 mmol/L (-2.0-2.0); ABG HCO3 22.2 mmol/L (22.0-26.0); ABG OXYGEN SATURATION 94.5 % (94-97); ABG PCO2 (T) 68.9 mmHg (35.0-48.0); ABG PO2 (T) 99.4 mmHg (75.0-100.0); ALLEN'S TEST POSITIVE; FCOHb 0.3 % (0.0-3.9); FMetHb 0.2 % (0.0-1.5); PATIENT TEMPERATURE 37.3; PEEP 15 cm H2O; RESPIRATORY RATE 22 b/min; TIDAL VOLUME 325 mL; TOTAL HEMOGLOBIN 11.8 G/dl (14.0-18.0)
--- NOTE | 2020-08-17 02:50 | NUR ---
0200 I have received report from PCU, via bed ER MD at bedside for emergent intubation, see MD notes for details regarding intubation. ABG obtained, propofol ordered for sedation, chest xray obtained, ventilator changes made Nurse practitioner at bedside, 2LNS given per orders.
[2020-08-17] MEDS: midazolam 100mg in NS 100ml 100 ML IV PRN ×5 (04:01→23:10)
[2020-08-17] MEDS: FENTANYL-0.9 % NACL/PF 100 ML IV PRN ×8 (04:01→23:17)
[2020-08-17] MEDS: ipratropium/albuterol 3ml nebule NEB SCH ×6 (04:04→23:02)
[2020-08-17 04:30] LABS: ABG BASE EXCESS -6.7 mmol/L (-2.0-2.0); ABG HCO3 22.5 mmol/L (22.0-26.0); ABG OXYGEN SATURATION 90.2 % (94-97); ABG PCO2 (T) 63.1 mmHg (35.0-48.0); ABG PO2 (T) 74.9 mmHg (75.0-100.0); ALLEN'S TEST POSITIVE; FCOHb 0.3 % (0.0-3.9); FMetHb 0.2 % (0.0-1.5); FO2Hb 89.7 % (94-97); PATIENT TEMPERATURE 36.7; PEEP 15 cm H2O; RESPIRATORY RATE 26 b/min; TIDAL VOLUME 325 mL; TOTAL HEMOGLOBIN 11.1 G/dl (14.0-18.0)
[2020-08-17 04:57] LABS: BASOPHILS # (AUTO) 0.1 X10'3 (0-0.2); BASOPHILS % (AUTO) 0.5 % (0-1); EOSINOPHILS # (AUTO) 0.3 X10'3 (0-0.9); HEMATOCRIT 32.2 % (42.0-52.0); LYMPHOCYTES # (AUTO) 1.9 X10'3 (1.1-4.8); LYMPHOCYTES % (AUTO) 6.7 % (21-51); MEAN CORPUSCULAR VOLUME 90.4 FL (78-98); MEAN PLATELET VOLUME 8.1 FL (7.4-10.4); MONOCYTES # (AUTO) 1.8 X10'3 (0-0.9); MONOCYTES % (AUTO) 6.4 % (2-12); NEUTROPHILS # (AUTO) 24.2 X10'3 (1.8-7.7); NEUTROPHILS % (AUTO) 85.4 % (42-75); PLATELET COUNT 281 X10'3 (140-440); RED BLOOD COUNT 3.56 X10'6 (4.70-6.10); RED CELL DISTRIBUTION WIDTH 19.5 % (11.5-14.5)
[2020-08-17 05:07] LABS: WHITE BLOOD COUNT 28.3 X10'3 (4.5-11.0)
[2020-08-17] MEDS ORDERED: sodium bicarbonate (8.4%) 1 mEq/ml syringe ONE (05:09)
[2020-08-17] MEDS ORDERED: sodium bicarbonate (8.4%) 1 mEq/ml syringe IV ONE (05:10)
[2020-08-17 05:11] LABS: ALANINE AMINOTRANSFERASE 33 U/L (12-78); ALBUMIN 2.8 G/DL (3.4-5.0); ALBUMIN/GLOBULIN RATIO 0.6 (1.1-1.5); ALKALINE PHOSPHATASE 94 IU/L (46-116); AMYLASE 68 U/L (25-115); ANION GAP 12 (8-16); ASPARTATE AMINO TRANSFERASE 52 U/L (10-37); BILIRUBIN,TOTAL 0.3 MG/DL (0.1-1.0); BLOOD UREA NITROGEN 33 MG/DL (7-18); BUN/CREATININE RATIO 21.4 (5.4-32.0); CALCIUM 8.6 MG/DL (8.5-10.1); CHLORIDE 114 MMOL/L (99-107); CREATININE 1.54 MG/DL (0.60-1.10); GLUCOSE 124 MG/DL (70-104); LIPASE 276 U/L (73-393); MAGNESIUM 2.1 MG/DL (1.5-2.4); PHOSPHORUS 6.9 MG/DL (2.3-4.5); POTASSIUM 4.2 MMOL/L (3.5-5.1); SODIUM 149 MMOL/L (135-145); TOTAL CARBON DIOXIDE 22.8 MMOL/L (24-32); TOTAL PROTEIN 7.4 G/DL (6.4-8.2); eGFR 47 ML/MIN
[2020-08-17] MEDS: NORepinephrine 8mg/ 250ml NS 250 ML IV SCH (05:30)
[2020-08-17] MEDS: propofol 1000mg/100ml bottle 100 ML IV SCH ×3 (05:47→22:21)
--- NOTE | 2020-08-17 06:50 | NUR ---
[id number] Peng regarding pts blood gas and over all decline in condition. multiple adjustments to ventilator per Md orders. per MD next abg will be at 0700. report given to rec rn plan of care reviewed
[2020-08-17] MEDS: LIPASE/PROTEASE/AMYLASE 10,500 units CAPSULE.DR PO SCH ×3 (07:00→13:31)
[2020-08-17] MEDS: methylPREDNISolone sod succ 125mg/2ml vial IV SCH ×3 (07:44→20:12)
[2020-08-17] MEDS: heparin, porcine 5000 units/ml vial SQ SCH ×2 (07:45→20:13)
[2020-08-17] MEDS: docusate sod 100mg capsule PO SCH (08:00)
[2020-08-17] MEDS: lisinopril 20mg tablet PO SCH (08:00)
[2020-08-17] MEDS: nortriptyline 25mg capsule PO SCH (08:00)
[2020-08-17] MEDS: K and/or MAG REPLACEMENT MC SCH ×2 (08:00→19:33)
[2020-08-17] MEDS: fluticasone nasal spray 16GM bottle NS SCH (08:00)
[2020-08-17] MEDS: loratadine 10mg tablet PO SCH (08:00)
[2020-08-17 08:05] LABS: ABG BASE EXCESS -1.7 mmol/L (-2.0-2.0); ABG HCO3 24.5 mmol/L (22.0-26.0); ABG OXYGEN SATURATION 92.8 % (94-97); ABG PCO2 (T) 52.7 mmHg (35.0-48.0); ABG PO2 (T) 79.3 mmHg (75.0-100.0); ALLEN'S TEST POSITIVE; FCOHb 0.6 % (0.0-3.9); FMetHb 0.2 % (0.0-1.5); FO2Hb 92.1 % (94-97); PATIENT TEMPERATURE 38.4; PEEP 12 cm H2O; RESPIRATORY RATE 20 b/min; TIDAL VOLUME 400 mL; TOTAL HEMOGLOBIN 7.4 G/dl (14.0-18.0)
[2020-08-17 08:10] LABS: ABG BASE EXCESS -2.6 mmol/L (-2.0-2.0); ABG HCO3 24.7 mmol/L (22.0-26.0); ABG OXYGEN SATURATION 48.3 % (94-97); ABG PO2 (T) 34.5 mmHg (75.0-100.0); FCOHb 0.3 % (0.0-3.9); FMetHb 0.3 % (0.0-1.5); PATIENT TEMPERATURE 38.4; PEEP 12 cm H2O; RESPIRATORY RATE 20 b/min; TIDAL VOLUME 400 mL
[2020-08-17] MEDS ORDERED: VANCOMYCIN LEVEL IV ONE (08:30)
[2020-08-17] MEDS: pantoprazole 40 MG vial IV SCH ×2 (08:33→20:12)
[2020-08-17] MEDS: folic acid 1mg/0.2ml inj IV SCH (08:34)
[2020-08-17] MEDS: thiamine inj. 100 MG, MVI, adult No.4 with vit. K 10 ML in dextrose 5% water 500ml 500 ML IV SCH ×3 (08:34)
[2020-08-17] MEDS: CISatracurium besylate inj. 100 MG in normal saline 100ml IV soln 90 ML IV PRN (08:49)
[2020-08-17 09:14] LABS: TOTAL CELLS COUNTED 100
[2020-08-17 09:18] LABS: ANISOCYTOSIS 2+; LARGE PLATELETS FEW; PLATELET ESTIMATE NORMAL; POLYCHROMASIA 1+; STOMATOCYTES 1+
[2020-08-17] MEDS: piperacillin/tazo 3.375gm/50ml 50 ML IV SCH ×3 (10:12→15:59)
[2020-08-17] MEDS: gabapentin 300mg capsule PO SCH ×2 (10:55→20:12)
[2020-08-17] MEDS: VANCOMYCIN 750MG IV in NS 250 ML IV SCH ×2 (10:55→21:48)
[2020-08-17] MEDS: lactobacillus rhamnosus 10,000 MMU CELLS/CAPSULE PO SCH ×2 (10:55→20:12)
--- NOTE | 2020-08-17 11:57 | NUR ---
PT EX- CALLED UPDATED WITH PT CONDITION. VERY UPSET. STATED WILL UPDATE HER CHILDREN, GAVE DIRECT LINE TO CALL. PT'S SON GRANDMOTHER CALLED STATED SON WAS WITH HER AND WAS TOLD BY MOTHER THAT HE ISN'T GOING TO MAKE IT. DISCUSSED EVENTS LEADING TO ICU TRANSFER, AND PT CURRENT STATUS.
[2020-08-17 12:15] LABS: ABG BASE EXCESS -5.3 mmol/L (-2.0-2.0); ABG OXYGEN SATURATION 93.4 % (94-97); ABG PCO2 (T) 72.1 mmHg (35.0-48.0); ABG PO2 (T) 88.9 mmHg (75.0-100.0); ALLEN'S TEST POSITIVE; FCOHb 0.3 % (0.0-3.9); FMetHb 0.3 % (0.0-1.5); FO2Hb 92.8 % (94-97); PATIENT TEMPERATURE 38.5; PEEP 14 cm H2O; RESPIRATORY RATE 22 b/min; TIDAL VOLUME 350 mL; TOTAL HEMOGLOBIN 11.4 G/dl (14.0-18.0)
--- NOTE | 2020-08-17 12:56 | NUR ---
WITH O2 DEMAND DECREASING TURNED PT AND CHANGED LINENS, PREOXYGENATED TO 100 AND DESATED WITH TURN AND PLACED ON LEFT SIDE. HAD TO RETURN PT TO RIGHT SIDE
--- NOTE | 2020-08-17 14:16 | NUR ---
Initial: Pt intubated DX extensive bilateral PNA, possible aspiration, sepsis, acute kidney failure, and ARDS on rotoprone per EMR. Currently NPO at this time w/ NG in place. MAP 88 this AM. TF per MD note though no order or consult at this time; EN recs below. Hx etoh receiving banana bag w/ pancreaze TID ordered though NPO; unsure if pancreatitis hx at this time. LBM 08/15. Will continue to monitor. Rec: 1. IF TF; Vital High Protein at 85ml/hr goal 2. IF TF; water flush 200ml Q4 3. IF TF; PALB Q /; daily wts 4. routine bowel care; pancreaze TID per MD once PO 5. thiamin, folic, MVI for etoh hx 6. upon extubation; advance diet as medically indicated to heart healthy; consider COLLECTION ADMINISTRATOR BSS Addendum: 08/17/20 at [address] Amended: Links added.
[2020-08-17 15:25] LABS: ABG BASE EXCESS -6.8 mmol/L (-2.0-2.0); ABG HCO3 19.8 mmol/L (22.0-26.0); ABG OXYGEN SATURATION 92.7 % (94-97); ABG PCO2 (T) 46.2 mmHg (35.0-48.0); ABG PO2 (T) 79.4 mmHg (75.0-100.0); ALLEN'S TEST POSITIVE; FCOHb 0.3 % (0.0-3.9); FMetHb 0.2 % (0.0-1.5); FO2Hb 92.2 % (94-97); PATIENT TEMPERATURE 37.8; PEEP 14 cm H2O; RESPIRATORY RATE 22 b/min; TIDAL VOLUME 400 mL; TOTAL HEMOGLOBIN 9.9 G/dl (14.0-18.0)
--- NOTE | 2020-08-17 18:35 | NUR ---
Patient in room ICU 2039. I have received report from KAY Crowder and had the opportunity to ask questions and assume patient care.
[2020-08-17] MEDS: traZODone 50mg tablet PO SCH (20:12)
[2020-08-17] MEDS: atorvastatin 10mg tablet PO SCH (20:12)
[2020-08-17] MEDS ORDERED: docusate sodium 100mg/10ml UD cup OGT ONE (20:20)
[2020-08-18] VITALS (24 sets, daily range): BP systolic 95–121; BP diastolic 55–72
[2020-08-18] MEDS: piperacillin/tazo 3.375gm/50ml 50 ML IV SCH ×3 (00:50→15:55)
[2020-08-18] MEDS: methylPREDNISolone sod succ 125mg/2ml vial IV SCH ×4 (02:11→19:56)
[2020-08-18] MEDS: mineral oil/petrolatum ophthal oint EACHEYE SCH ×4 (02:11→19:56)
[2020-08-18] MEDS: FENTANYL-0.9 % NACL/PF 100 ML IV PRN ×6 (02:12→22:25)
[2020-08-18 02:18] LABS: BASOPHILS % (AUTO) 0.1 % (0-1); EOSINOPHILS % (AUTO) 0 % (0-6); HEMATOCRIT 26.7 % (42.0-52.0); LYMPHOCYTES % (AUTO) 4.2 % (21-51); MEAN CORPUSCULAR HEMOGLOBIN 27.3 PG (27.0-31.0); MEAN CORPUSCULAR HGB CONC 29.8 g/dL (33.0-36.5); MEAN CORPUSCULAR VOLUME 91.6 FL (78-98); MONOCYTES # (AUTO) 0.5 X10'3 (0-0.9); MONOCYTES % (AUTO) 2.2 % (2-12); NEUTROPHILS # (AUTO) 22.2 X10'3 (1.8-7.7); NEUTROPHILS % (AUTO) 93.5 % (42-75); PLATELET COUNT 178 X10'3 (140-440); RED BLOOD COUNT 2.91 X10'6 (4.70-6.10); RED CELL DISTRIBUTION WIDTH 19.7 % (11.5-14.5); WHITE BLOOD COUNT 23.8 X10'3 (4.5-11.0)
[2020-08-18 02:31] LABS: ALANINE AMINOTRANSFERASE 27 U/L (12-78); ALBUMIN 2.5 G/DL (3.4-5.0); ALBUMIN/GLOBULIN RATIO 0.6 (1.1-1.5); ALKALINE PHOSPHATASE 74 IU/L (46-116); AMYLASE 31 U/L (25-115); ANION GAP 10 (8-16); ASPARTATE AMINO TRANSFERASE 37 U/L (10-37); BILIRUBIN,TOTAL 0.2 MG/DL (0.1-1.0); BLOOD UREA NITROGEN 26 MG/DL (7-18); BUN/CREATININE RATIO 23.2 (5.4-32.0); CALCIUM 8.1 MG/DL (8.5-10.1); CHLORIDE 118 MMOL/L (99-107); CREATININE 1.12 MG/DL (0.60-1.10); GLUCOSE 144 MG/DL (70-104); LIPASE 95 U/L (73-393); MAGNESIUM 2.3 MG/DL (1.5-2.4); PHOSPHORUS 2.6 MG/DL (2.3-4.5); POTASSIUM 3.8 MMOL/L (3.5-5.1); SODIUM 154 MMOL/L (135-145); TOTAL CARBON DIOXIDE 26.3 MMOL/L (24-32); TOTAL PROTEIN 6.4 G/DL (6.4-8.2); TRIGLYCERIDES 361 MG/DL (20-135); eGFR 69 ML/MIN
[2020-08-18 03:06] LABS: ANISOCYTOSIS 2+; HYPOCHROMASIA 1+; PLATELET ESTIMATE NORMAL
[2020-08-18] MEDS: ipratropium/albuterol 3ml nebule NEB SCH ×6 (03:20→23:08)
[2020-08-18 03:40] LABS: ABG BASE EXCESS -7.5 mmol/L (-2.0-2.0); ABG HCO3 18.7 mmol/L (22.0-26.0); ABG OXYGEN SATURATION 98.8 % (94-97); ABG PCO2 (T) 39.1 mmHg (35.0-48.0); ABG PO2 (T) 143.1 mmHg (75.0-100.0); FCOHb 0.3 % (0.0-3.9); FMetHb 0.1 % (0.0-1.5); FO2Hb 98.4 % (94-97); PATIENT TEMPERATURE 36.2; PEEP 14 cm H2O; RESPIRATORY RATE 22 b/min; TIDAL VOLUME 400 mL
[2020-08-18] MEDS: midazolam 100mg in NS 100ml 100 ML IV PRN ×3 (04:29→20:36)
--- NOTE | 2020-08-18 06:10 | NUR ---
Problems reprioritized. Patient report given, questions answered & plan of care reviewed with KAY Grant.
--- NOTE | 2020-08-18 06:15 | NUR ---
Patient in room ICU 2039. I have received report from Whitley VILLANUEVA and had the opportunity to ask questions and assume patient care. Addendum: 08/18/20 at 0616 by Juanita Head RN Amended: Links added.
[2020-08-18] MEDS: LIPASE/PROTEASE/AMYLASE 10,500 units CAPSULE.DR PO SCH ×3 (07:00→16:02)
[2020-08-18] MEDS: lactobacillus rhamnosus 10,000 MMU CELLS/CAPSULE PO SCH ×2 (07:15→19:59)
[2020-08-18] MEDS: gabapentin 300mg capsule PO SCH (07:15)
[2020-08-18] MEDS: docusate sodium 100mg/10ml UD cup OGT SCH ×2 (07:15→19:56)
[2020-08-18] MEDS: nortriptyline 25mg capsule PO SCH (07:15)
[2020-08-18] MEDS: loratadine 10mg tablet PO SCH (07:15)
[2020-08-18] MEDS: pantoprazole 40 MG vial IV SCH ×2 (07:15→19:56)
[2020-08-18] MEDS: lisinopril 20mg tablet PO SCH (07:19)
[2020-08-18] MEDS: K and/or MAG REPLACEMENT MC SCH ×2 (07:23→20:00)
[2020-08-18] MEDS: folic acid 1mg/0.2ml inj IV SCH (07:23)
[2020-08-18] MEDS: heparin, porcine 5000 units/ml vial SQ SCH ×2 (07:28→19:58)
[2020-08-18] MEDS: thiamine inj. 100 MG, MVI, adult No.4 with vit. K 10 ML in dextrose 5% water 500ml 500 ML IV SCH ×3 (08:40)
[2020-08-18] MEDS: VANCOMYCIN 750MG IV in NS 250 ML IV SCH ×2 (09:51→22:04)
[2020-08-18] MEDS: fluticasone nasal spray 16GM bottle NS SCH (09:56)
--- NOTE | 2020-08-18 10:12 | NUR ---
ROUNDS NOTE: Dr. Peng notified of NPO (no TF), Na of 154, awaiting Rotoprone bed, Nimbex infusing. Dr. Peng stated to hold off on TF for today and to prone pt.
--- NOTE | 2020-08-18 10:22 | NUR ---
Dr. Land called to report OGT should be advanced 3-5 cm per CXR. Advanced per recommendations.
[2020-08-18] MEDS: propofol 1000mg/100ml bottle 100 ML IV SCH ×2 (10:41→20:08)
[2020-08-18] MEDS: NORepinephrine 8mg/ 250ml NS 250 ML IV SCH (11:08)
--- NOTE | 2020-08-18 12:16 | NUR ---
Pt. desaturates with turns even with 100% oxygenating prior to repositioning.
[2020-08-18] MEDS: CISatracurium besylate inj. 100 MG in normal saline 100ml IV soln 90 ML IV PRN (12:23)
[2020-08-18] MEDS ORDERED: POTASSIUM BICARB 20meq eff tab 20 MEQ TABLET.EFF OGT PRN (16:06)
[2020-08-18] MEDS ORDERED: haloperidol 5mg tablet OGT PRN (16:07)
[2020-08-18] MEDS ORDERED: LORazepam 1 MG tablet OGT PRN (16:08)
[2020-08-18 18:10] LABS: ATYPICAL PANCA <1:20 titer (Neg:<1:20); CYTOPLASMIC (C-ANCA) <1:20 titer (Neg:<1:20); PERINUCLEAR (P-ANCA) <1:20 titer (Neg:<1:20)
--- NOTE | 2020-08-18 18:11 | NUR ---
Problems reprioritized. Patient report given, questions answered & plan of care reviewed with Whitley VILLANUEVA.
--- NOTE | 2020-08-18 18:15 | NUR ---
Patient in room ICU 2039. I have received report from KAY Grant and had the opportunity to ask questions and assume patient care.
[2020-08-18] MEDS: gabapentin 300mg capsule OGT SCH (19:58)
[2020-08-18] MEDS: traZODone 50mg tablet OGT SCH (19:58)
[2020-08-18] MEDS: atorvastatin 10mg tablet OGT SCH (20:10)
[2020-08-18] MEDS ORDERED: VANCOMYCIN LEVEL IV ONE (21:30)
[2020-08-19] VITALS (24 sets, daily range): BP systolic 99–131; BP diastolic 36–73
[2020-08-19] MEDS: piperacillin/tazo 3.375gm/50ml 50 ML IV SCH ×3 (00:43→15:46)
[2020-08-19] MEDS: midazolam 100mg in NS 100ml 100 ML IV PRN ×5 (01:14→22:54)
[2020-08-19] MEDS: FENTANYL-0.9 % NACL/PF 100 ML IV PRN ×8 (01:14→23:29)
[2020-08-19] MEDS ORDERED: LORazepam 2 mg/ml vial IV PRN (01:20)
[2020-08-19] MEDS: methylPREDNISolone sod succ 125mg/2ml vial IV SCH ×2 (01:56→07:31)
[2020-08-19] MEDS: mineral oil/petrolatum ophthal oint EACHEYE SCH ×4 (01:56→20:53)
[2020-08-19] MEDS: ipratropium/albuterol 3ml nebule NEB SCH ×6 (03:02→23:33)
[2020-08-19 03:04] LABS: BASOPHILS % (AUTO) 0.1 % (0-1); EOSINOPHILS % (AUTO) 0 % (0-6); HEMATOCRIT 25.6 % (42.0-52.0); HEMOGLOBIN 7.6 g/dl (14.0-17.9); LYMPHOCYTES # (AUTO) 0.7 X10'3 (1.1-4.8); LYMPHOCYTES % (AUTO) 2.3 % (21-51); MEAN CORPUSCULAR HEMOGLOBIN 27.3 PG (27.0-31.0); MEAN CORPUSCULAR HGB CONC 29.6 g/dL (33.0-36.5); MEAN CORPUSCULAR VOLUME 92.1 FL (78-98); MEAN PLATELET VOLUME 8.7 FL (7.4-10.4); MONOCYTES # (AUTO) 0.8 X10'3 (0-0.9); MONOCYTES % (AUTO) 2.6 % (2-12); NEUTROPHILS # (AUTO) 27.9 X10'3 (1.8-7.7); PLATELET COUNT 198 X10'3 (140-440); RED BLOOD COUNT 2.78 X10'6 (4.70-6.10)
[2020-08-19 03:09] LABS: WHITE BLOOD COUNT 29.4 X10'3 (4.5-11.0)
[2020-08-19 03:31] LABS: ANISOCYTOSIS 2+; HYPOCHROMASIA 1+; PLATELET ESTIMATE NORMAL; TOTAL CELLS COUNTED 100
[2020-08-19 03:32] LABS: ALANINE AMINOTRANSFERASE 22 U/L (12-78); ALBUMIN 2.3 G/DL (3.4-5.0); ALBUMIN/GLOBULIN RATIO 0.6 (1.1-1.5); ALKALINE PHOSPHATASE 74 IU/L (46-116); AMYLASE 34 U/L (25-115); ANION GAP 11 (8-16); ASPARTATE AMINO TRANSFERASE 21 U/L (10-37); BILIRUBIN,TOTAL 0.2 MG/DL (0.1-1.0); BLOOD UREA NITROGEN 30 MG/DL (7-18); BUN/CREATININE RATIO 24.2 (5.4-32.0); CALCIUM 8.3 MG/DL (8.5-10.1); CHLORIDE 120 MMOL/L (99-107); CREATININE 1.24 MG/DL (0.60-1.10); GLUCOSE 161 MG/DL (70-104); LIPASE 142 U/L (73-393); MAGNESIUM 2.8 MG/DL (1.5-2.4); PHOSPHORUS 2.1 MG/DL (2.3-4.5); POTASSIUM 3.1 MMOL/L (3.5-5.1); TOTAL CARBON DIOXIDE 25.2 MMOL/L (24-32); TOTAL PROTEIN 5.9 G/DL (6.4-8.2); eGFR 61 ML/MIN
[2020-08-19 03:36] LABS: SODIUM 156 MMOL/L (135-145)
[2020-08-19] MEDS: dextrose 5%-water 1,000 ML IV SCH ×3 (04:03→22:54)
[2020-08-19 04:11] LABS: ABG BASE EXCESS -0.8 mmol/L (-2.0-2.0); ABG OXYGEN SATURATION 98.4 % (94-97); ABG PCO2 (T) 46.9 mmHg (35.0-48.0); ALLEN'S TEST POSITIVE; FCOHb 0.3 % (0.0-3.9); FMetHb 0.2 % (0.0-1.5); FO2Hb 97.9 % (94-97); PATIENT TEMPERATURE 36.9; PEEP 12 cm H2O; RESPIRATORY RATE 24 b/min; TIDAL VOLUME 400 mL; TOTAL HEMOGLOBIN 8.6 G/dl (14.0-18.0)
[2020-08-19] MEDS: propofol 1000mg/100ml bottle 100 ML IV SCH ×3 (04:11→17:47)
[2020-08-19] MEDS: POTASSIUM BICARB 20meq eff tab 20 MEQ TABLET.EFF OGT PRN ×3 (04:29→12:25)
--- NOTE | 2020-08-19 06:11 | NUR ---
Patient in room ICU 2039. I have received report from Whitley VILLANUEVA and had the opportunity to ask questions and assume patient care. Addendum: 08/19/20 at 0612 by Juanita Head RN Amended: Links added.
--- NOTE | 2020-08-19 06:47 | NUR ---
MARISOL BED ORDER CONFIRMATION #: [id number].
[2020-08-19] MEDS: thiamine inj. 100 MG, MVI, adult No.4 with vit. K 10 ML in dextrose 5% water 500ml 500 ML IV SCH ×3 (06:56)
[2020-08-19] MEDS: K and/or MAG REPLACEMENT MC SCH ×2 (07:00→20:00)
[2020-08-19] MEDS: loratadine 10mg tablet OGT SCH (07:30)
[2020-08-19] MEDS: gabapentin 300mg capsule OGT SCH ×2 (07:30→20:54)
[2020-08-19] MEDS: docusate sodium 100mg/10ml UD cup OGT SCH ×2 (07:30→20:55)
[2020-08-19] MEDS: lactobacillus rhamnosus 10,000 MMU CELLS/CAPSULE PO SCH ×2 (07:30→20:54)
[2020-08-19] MEDS: nortriptyline 25mg capsule OGT SCH (07:31)
[2020-08-19] MEDS: pantoprazole 40 MG vial IV SCH ×2 (07:31→20:53)
[2020-08-19] MEDS: heparin, porcine 5000 units/ml vial SQ SCH ×2 (07:31→20:55)
[2020-08-19] MEDS: fluticasone nasal spray 16GM bottle NS SCH (07:32)
[2020-08-19] MEDS: folic acid 1mg/0.2ml inj IV SCH (07:33)
[2020-08-19] MEDS: lisinopril 20mg tablet OGT SCH (07:42)
--- NOTE | 2020-08-19 08:54 | NUR ---
Bed control is set to automatic rotation since we are unable to manually prone pt. and are awaiting a Rotoprone bed.
[2020-08-19] MEDS: vancomycin/NS 1 GM ADD-VANTAGE 250 ML IV SCH ×2 (09:25→22:24)
--- NOTE | 2020-08-19 13:04 | NUR ---
ROUNDS NOTE: Rotoprone bed and prone positioning orders cancelled, Solumedrol dose decreased, Diflucan, Reglan, Spironolactone, lasix and tube feedings ordered. Addendum: 08/19/20 at [address] by Juanita Head RN Dr. Peng aware that pt. is off Levophed and Nimbex and RN is weaning sedation slowly. Aware that bed is continuously turning patient.
[2020-08-19] MEDS: spironolactone 25 MG tablet OGT SCH ×2 (13:11→20:54)
[2020-08-19] MEDS: metoclopramide 5 mg/ml inj IV SCH ×2 (13:30→20:54)
--- NOTE | 2020-08-19 14:28 | NUR ---
TF Consult: Pt to start OGTF today to start at 20ml/hr and advance to 40 after 12 hours then advancement as tolerated to goal per senior oracle database administrator. Not on rotoprone at this time during RD visit; awaiting equipment per RN. LBM 08/15; RD d/w RN regarding opioid antagonist if MD agreeable since receiving fentanyl and midazolam. Noted pt started on reglan today and receiving routine colace. Pt Na 156 receiving D5 at 100ml/hr. EN recs below given pt needs on vent. Will monitor for EN tolerance. Rec: 1. OGTF per MD using Vital High Protein at 85ml/hr goal. Initiate at 20ml/hr and advance to 40ml/hr following 12 hours per senior oracle database administrator; then advance as tolerated Q8 to goal. To provide 2040ml volume, 2040 kcals, 1714ml free water, and 179g protein. 2. additional water flush 200ml Q4 3. PALB Q /; daily wts 4. routine bowel care; promotility and opioid antagonist IF MD agreeable 5. consider restarting pancreatic enzymes w/ EN if true pancreatitis hx since on EMR per MD; unsure if hx at this time 5. thiamin, folic, MVI for etoh hx 6. upon extubation; advance diet as medically indicated to heart healthy; consider TAR HEATER OPERATOR BSS Addendum: 08/19/20 at [address] Amended: Links added.
--- NOTE | 2020-08-19 14:35 | NUR ---
Dr. Peng notified of BG 211. Stated to dc Solumedrol. Pt. is not diabetic. No insulin/Hyperglycemic protocol ordered.
--- NOTE | 2020-08-19 15:59 | NUR ---
TF started at 1530. RN turned pt. to assess backside and changed draw sheet and pt. started to peak pressure and breath stack. Increased sedation.
[2020-08-19] MEDS ORDERED: methylPREDNISolone sod succ/PF 40mg inj. IV SCH (16:00)
[2020-08-19] MEDS: NORepinephrine 8mg/ 250ml NS 250 ML IV SCH (16:46)
--- NOTE | 2020-08-19 18:14 | NUR ---
Problems reprioritized. Patient report given, questions answered & plan of care reviewed with Britt VILLANUEVA.
--- NOTE | 2020-08-19 18:20 | NUR ---
Patient in room ICU 2039. I have received report from Juanita VILLANUEVA and had the opportunity to ask questions and assume patient care.
[2020-08-19] MEDS: fluconazole-Diflucan 200mg/NS 100 ML IV SCH (20:53)
[2020-08-19] MEDS: furosemide 40mg/4ml inj IV SCH (20:53)
[2020-08-19] MEDS: atorvastatin 10mg tablet OGT SCH (20:55)
[2020-08-19] MEDS: traZODone 50mg tablet OGT SCH (21:00)
[2020-08-20] VITALS (24 sets, daily range): BP systolic 97–128; BP diastolic 54–75
[2020-08-20] MEDS: piperacillin/tazo 3.375gm/50ml 50 ML IV SCH ×2 (00:27→09:58)
[2020-08-20] MEDS: propofol 1000mg/100ml bottle 100 ML IV SCH ×5 (00:27→22:42)
[2020-08-20 02:27] LABS: BASOPHILS # (AUTO) 0.1 X10'3 (0-0.2); BASOPHILS % (AUTO) 0.3 % (0-1); EOSINOPHILS % (AUTO) 0 % (0-6); HEMATOCRIT 25.2 % (42.0-52.0); HEMOGLOBIN 7.7 g/dl (14.0-17.9); LYMPHOCYTES # (AUTO) 0.6 X10'3 (1.1-4.8); LYMPHOCYTES % (AUTO) 2.4 % (21-51); MEAN CORPUSCULAR HEMOGLOBIN 27.5 PG (27.0-31.0); MEAN CORPUSCULAR HGB CONC 30.5 g/dL (33.0-36.5); MEAN CORPUSCULAR VOLUME 90.2 FL (78-98); MEAN PLATELET VOLUME 8.4 FL (7.4-10.4); MONOCYTES # (AUTO) 1.1 X10'3 (0-0.9); NEUTROPHILS # (AUTO) 24.6 X10'3 (1.8-7.7); NEUTROPHILS % (AUTO) 93.3 % (42-75); PLATELET COUNT 210 X10'3 (140-440); RED BLOOD COUNT 2.79 X10'6 (4.70-6.10); RED CELL DISTRIBUTION WIDTH 20.1 % (11.5-14.5)
[2020-08-20] MEDS: mineral oil/petrolatum ophthal oint EACHEYE SCH ×4 (02:31→19:04)
[2020-08-20] MEDS: metoclopramide 5 mg/ml inj IV SCH ×4 (02:32→19:04)
[2020-08-20] MEDS: FENTANYL-0.9 % NACL/PF 100 ML IV PRN ×7 (02:32→22:42)
[2020-08-20 02:33] LABS: WHITE BLOOD COUNT 26.4 X10'3 (4.5-11.0)
[2020-08-20 02:45] LABS: ALANINE AMINOTRANSFERASE 23 U/L (12-78); ALBUMIN 2.4 G/DL (3.4-5.0); ALBUMIN/GLOBULIN RATIO 0.7 (1.1-1.5); ALKALINE PHOSPHATASE 76 IU/L (46-116); AMYLASE 70 U/L (25-115); ANION GAP 6 (8-16); ASPARTATE AMINO TRANSFERASE 28 U/L (10-37); BILIRUBIN,TOTAL 0.3 MG/DL (0.1-1.0); BLOOD UREA NITROGEN 31 MG/DL (7-18); BUN/CREATININE RATIO 26.5 (5.4-32.0); CALCIUM 7.9 MG/DL (8.5-10.1); CHLORIDE 113 MMOL/L (99-107); CREATININE 1.17 MG/DL (0.60-1.10); GLUCOSE 150 MG/DL (70-104); LIPASE 331 U/L (73-393); PHOSPHORUS 2.6 MG/DL (2.3-4.5); POTASSIUM 3.6 MMOL/L (3.5-5.1); SODIUM 147 MMOL/L (135-145); TOTAL CARBON DIOXIDE 27.7 MMOL/L (24-32); eGFR 65 ML/MIN
[2020-08-20 02:48] LABS: TOTAL CELLS COUNTED 100
[2020-08-20 02:49] LABS: ANISOCYTOSIS 2+; HYPOCHROMASIA 1+; PLATELET ESTIMATE NORMAL; STOMATOCYTES 2+
[2020-08-20] MEDS: ipratropium/albuterol 3ml nebule NEB SCH ×6 (02:59→23:22)
[2020-08-20 04:05] LABS: ABG BASE EXCESS -2.8 mmol/L (-2.0-2.0); ABG HCO3 23.2 mmol/L (22.0-26.0); ABG OXYGEN SATURATION 90.7 % (94-97); ABG PCO2 (T) 45.7 mmHg (35.0-48.0); ABG PO2 (T) 61.8 mmHg (75.0-100.0); ALLEN'S TEST POSITIVE; FCOHb 0.3 % (0.0-3.9); FMetHb 0.3 % (0.0-1.5); FO2Hb 90.2 % (94-97); PATIENT TEMPERATURE 36.8; PEEP 10 cm H2O; RESPIRATORY RATE 22 b/min; TIDAL VOLUME 400 mL; TOTAL HEMOGLOBIN 8.8 G/dl (14.0-18.0)
[2020-08-20] MEDS: midazolam 100mg in NS 100ml 100 ML IV PRN ×4 (05:03→20:28)
--- NOTE | 2020-08-20 06:33 | NUR ---
Problems reprioritized. Patient report given, questions answered & plan of care reviewed with Alma VILLANUEVA.
[2020-08-20] MEDS: fluticasone nasal spray 16GM bottle NS SCH (07:53)
[2020-08-20] MEDS: pantoprazole 40 MG vial IV SCH ×2 (07:53→19:03)
[2020-08-20] MEDS: furosemide 40mg/4ml inj IV SCH ×2 (07:53→19:03)
[2020-08-20] MEDS: folic acid 1mg/0.2ml inj IV SCH (07:54)
[2020-08-20] MEDS: heparin, porcine 5000 units/ml vial SQ SCH ×2 (07:54→19:03)
[2020-08-20] MEDS: K and/or MAG REPLACEMENT MC SCH ×2 (08:00→19:05)
[2020-08-20] MEDS: thiamine inj. 100 MG, MVI, adult No.4 with vit. K 10 ML in dextrose 5% water 500ml 500 ML IV SCH ×3 (08:06)
[2020-08-20] MEDS: fluconazole-Diflucan 200mg/NS 100 ML IV SCH ×2 (08:06→19:02)
[2020-08-20] MEDS: lactobacillus rhamnosus 10,000 MMU CELLS/CAPSULE PO SCH ×2 (08:10→19:05)
[2020-08-20] MEDS: nortriptyline 25mg capsule OGT SCH (08:10)
[2020-08-20] MEDS: docusate sodium 100mg/10ml UD cup OGT SCH ×2 (08:10→19:03)
[2020-08-20] MEDS: gabapentin 300mg capsule OGT SCH ×2 (08:10→19:05)
[2020-08-20] MEDS: spironolactone 25 MG tablet OGT SCH ×3 (08:10→20:37)
[2020-08-20] MEDS: loratadine 10mg tablet OGT SCH (08:10)
[2020-08-20] MEDS: lisinopril 20mg tablet OGT SCH (08:11)
[2020-08-20] MEDS: dextrose 5%-water 1,000 ML IV SCH (08:22)
[2020-08-20] MEDS: vancomycin/NS 1 GM ADD-VANTAGE 250 ML IV SCH (09:59)
[2020-08-20] MEDS: methylnaltrexone br 12mg/0.6ml inj***SubQ only SQ SCH (11:00)
[2020-08-20] MEDS: azithromycin/NS 500mg/250ml 250 ML IV SCH (12:07)
--- NOTE | 2020-08-20 13:36 | NUR ---
Huber Consult: Huber 12; skin intact. Na 147 down from 156 yesterday receiving D5 at 100ml/hr on top of 200ml Q4 water flushes; D5 to stop today per ac/dc rewinder since receiving free water. Addendum: 08/20/20 at [address] Amended: Links added.
--- NOTE | 2020-08-20 13:42 | NUR ---
Huber Consult: Huber 12; skin intact. Na 147 down from 156 yesterday receiving D5 at 100ml/hr on top of 200ml Q4 water flushes; D5 to stop today per enforcement safety officer since receiving free water. Addendum: 08/20/20 at [address] Amended: Links added.
--- NOTE | 2020-08-20 18:00 | NUR ---
Patient in room ICU 2039. I have received report and had the opportunity to ask questions and assume patient care.
[2020-08-20] MEDS: polyethylene glycol 3350 17gm powd pack PO SCH (20:36)
[2020-08-20] MEDS: atorvastatin 10mg tablet OGT SCH (20:36)
[2020-08-20] MEDS: traZODone 50mg tablet OGT SCH (20:36)
[2020-08-20] MEDS ORDERED: VANCOMYCIN LEVEL IV ONE (21:30)
[2020-08-20] MEDS: NORepinephrine 8mg/ 250ml NS 250 ML IV SCH (22:24)
[2020-08-21] VITALS (24 sets, daily range): BP systolic 91–122; BP diastolic 43–69
[2020-08-21] MEDS ORDERED: LORazepam 2 mg/ml vial IV PRN (01:20)
[2020-08-21] MEDS: midazolam 100mg in NS 100ml 100 ML IV PRN ×5 (01:39→23:35)
[2020-08-21] MEDS: mineral oil/petrolatum ophthal oint EACHEYE SCH ×4 (01:39→19:21)
[2020-08-21] MEDS: metoclopramide 5 mg/ml inj IV SCH ×4 (01:40→19:20)
[2020-08-21 02:44] LABS: BASOPHILS % (AUTO) 0.2 % (0-1); EOSINOPHILS # (AUTO) 0.3 X10'3 (0-0.9); EOSINOPHILS % (AUTO) 1.6 % (0-6); HEMATOCRIT 24.7 % (42.0-52.0); HEMOGLOBIN 7.9 g/dl (14.0-17.9); LYMPHOCYTES # (AUTO) 1.5 X10'3 (1.1-4.8); LYMPHOCYTES % (AUTO) 7.4 % (21-51); MEAN CORPUSCULAR HEMOGLOBIN 28.7 PG (27.0-31.0); MEAN CORPUSCULAR VOLUME 89.7 FL (78-98); MONOCYTES # (AUTO) 0.6 X10'3 (0-0.9); MONOCYTES % (AUTO) 2.9 % (2-12); NEUTROPHILS # (AUTO) 17.5 X10'3 (1.8-7.7); NEUTROPHILS % (AUTO) 87.9 % (42-75); PLATELET COUNT 204 X10'3 (140-440); RED BLOOD COUNT 2.75 X10'6 (4.70-6.10); WHITE BLOOD COUNT 19.9 X10'3 (4.5-11.0)
[2020-08-21] MEDS: ipratropium/albuterol 3ml nebule NEB SCH ×6 (02:59→22:54)
[2020-08-21 03:00] LABS: ALANINE AMINOTRANSFERASE 23 U/L (12-78); ALBUMIN 2.2 G/DL (3.4-5.0); ALBUMIN/GLOBULIN RATIO 0.6 (1.1-1.5); ALKALINE PHOSPHATASE 90 IU/L (46-116); AMYLASE 85 U/L (25-115); ANION GAP 7 (8-16); ASPARTATE AMINO TRANSFERASE 35 U/L (10-37); BILIRUBIN,TOTAL 0.2 MG/DL (0.1-1.0); BLOOD UREA NITROGEN 24 MG/DL (7-18); BUN/CREATININE RATIO 27.6 (5.4-32.0); CALCIUM 7.7 MG/DL (8.5-10.1); CHLORIDE 111 MMOL/L (99-107); CREATININE 0.87 MG/DL (0.60-1.10); GLUCOSE 125 MG/DL (70-104); LIPASE 503 U/L (73-393); PHOSPHORUS 1.9 MG/DL (2.3-4.5); POTASSIUM 3.2 MMOL/L (3.5-5.1); PREALBUMIN 18.2 MG/DL (19-36); SODIUM 150 MMOL/L (135-145); TOTAL CARBON DIOXIDE 32.2 MMOL/L (24-32); TOTAL PROTEIN 5.7 G/DL (6.4-8.2); eGFR > 90 ML/MIN
[2020-08-21 03:10] LABS: ANISOCYTOSIS 2+; HYPOCHROMASIA 1+; PLATELET ESTIMATE NORMAL; STOMATOCYTES 2+; TOTAL CELLS COUNTED 100
[2020-08-21] MEDS: propofol 1000mg/100ml bottle 100 ML IV SCH ×6 (03:49→21:58)
[2020-08-21] MEDS: POTASSIUM BICARB 20meq eff tab 20 MEQ TABLET.EFF OGT PRN ×2 (03:49→08:00)
[2020-08-21 03:50] LABS: ABG BASE EXCESS 6.1 mmol/L (-2.0-2.0); ABG HCO3 31.7 mmol/L (22.0-26.0); ABG OXYGEN SATURATION 90.6 % (94-97); ABG PCO2 (T) 54.2 mmHg (35.0-48.0); ABG PO2 (T) 66.8 mmHg (75.0-100.0); ALLEN'S TEST POSITIVE; FCOHb 0.3 % (0.0-3.9); FMetHb 0.1 % (0.0-1.5); FO2Hb 90.2 % (94-97); PATIENT TEMPERATURE 37.8; PEEP 10 cm H2O; RESPIRATORY RATE 22 b/min; TIDAL VOLUME 400 mL; TOTAL HEMOGLOBIN 8.9 G/dl (14.0-18.0)
[2020-08-21] MEDS: FENTANYL-0.9 % NACL/PF 100 ML IV PRN ×4 (05:17→21:58)
--- NOTE | 2020-08-21 06:12 | NUR ---
Problems reprioritized. Patient report given, questions answered & plan of care reviewed with kell lazar.
[2020-08-21] MEDS: fluconazole-Diflucan 200mg/NS 100 ML IV SCH ×2 (07:38→19:20)
[2020-08-21] MEDS: azithromycin/NS 500mg/250ml 250 ML IV SCH (07:39)
[2020-08-21] MEDS: pantoprazole 40 MG vial IV SCH ×2 (07:40→19:20)
[2020-08-21] MEDS: fluticasone nasal spray 16GM bottle NS SCH (07:40)
[2020-08-21] MEDS: loratadine 10mg tablet OGT SCH (07:41)
[2020-08-21] MEDS: nortriptyline 25mg capsule OGT SCH (07:41)
[2020-08-21] MEDS: lactobacillus rhamnosus 10,000 MMU CELLS/CAPSULE PO SCH ×2 (07:41→19:22)
[2020-08-21] MEDS: docusate sodium 100mg/10ml UD cup OGT SCH ×2 (07:41→19:21)
[2020-08-21] MEDS: furosemide 40mg/4ml inj IV SCH (07:41)
[2020-08-21] MEDS: spironolactone 25 MG tablet OGT SCH ×3 (07:41→19:22)
[2020-08-21] MEDS: folic acid 1mg/0.2ml inj IV SCH (07:41)
[2020-08-21] MEDS: gabapentin 300mg capsule OGT SCH ×2 (07:41→19:21)
[2020-08-21] MEDS: thiamine inj. 100 MG, MVI, adult No.4 with vit. K 10 ML in dextrose 5% water 500ml 500 ML IV SCH ×3 (07:42)
[2020-08-21] MEDS: heparin, porcine 5000 units/ml vial SQ SCH ×2 (07:42→19:20)
[2020-08-21] MEDS: K and/or MAG REPLACEMENT MC SCH ×2 (08:00→19:21)
[2020-08-21] MEDS: lisinopril 20mg tablet OGT SCH (08:00)
[2020-08-21] MEDS ORDERED: magnesium 4gm in 100ml NS 100 ML IV PRN (10:50)
[2020-08-21] MEDS ORDERED: magnesium Cl slow-release 64mg tablet PO PRN (10:50)
[2020-08-21] MEDS ORDERED: magnesium 2GM in 50ml NS 50 ML IV PRN (10:50)
[2020-08-21] MEDS: acetaminophen 325mg/10.15ml oral unit dose solution OGT PRN (10:59)
[2020-08-21] MEDS: NORepinephrine 8mg/ 250ml NS 250 ML IV SCH (11:29)
[2020-08-21] MEDS ORDERED: Neutra Phos packet PO PRN (11:40)
[2020-08-21] MEDS ORDERED: sodium phosphate inj. 30 MMOL in dextrose 5%-water 250 ML IV PRN (11:40)
[2020-08-21] MEDS ORDERED: sodium phosphate inj. 15 MMOL in dextrose 5%-water 250 ML IV ONE (11:45)
[2020-08-21 13:33] LABS: POTASSIUM 3.2 MMOL/L (3.5-5.1)
[2020-08-21] MEDS: potassium CL 10mEq/100ml bag 100 ML IV PRN ×2 (13:52→15:22)
--- NOTE | 2020-08-21 18:29 | NUR ---
Patient in room ICU 2039. I have received report from kell lazar and had the opportunity to ask questions and assume patient care.
[2020-08-21] MEDS: potassium Cl 20mEq/100mL bag 100 ML IV PRN (19:01)
[2020-08-21] MEDS: traZODone 50mg tablet OGT SCH (19:22)
[2020-08-21] MEDS: atorvastatin 10mg tablet OGT SCH (19:22)
[2020-08-21] MEDS: polyethylene glycol 3350 17gm powd pack PO SCH (19:22)
--- NOTE | 2020-08-21 19:27 | NUR ---
Problems reprioritized. Patient report given, questions answered & plan of care reviewed with Tanya VILLANUEVA.
[2020-08-22] VITALS (23 sets, daily range): BP systolic 84–134; BP diastolic 42–79
[2020-08-22] MEDS: FENTANYL-0.9 % NACL/PF 100 ML IV PRN ×8 (01:06→23:33)
[2020-08-22] MEDS: propofol 1000mg/100ml bottle 100 ML IV SCH ×8 (01:06→22:31)
[2020-08-22] MEDS: acetaminophen 325mg/10.15ml oral unit dose solution OGT PRN ×4 (01:14→20:58)
[2020-08-22] MEDS: metoclopramide 5 mg/ml inj IV SCH ×4 (01:14→20:00)
[2020-08-22] MEDS: mineral oil/petrolatum ophthal oint EACHEYE SCH ×4 (01:14→20:58)
[2020-08-22 03:00] LABS: BASOPHILS # (AUTO) 0.1 X10'3 (0-0.2); BASOPHILS % (AUTO) 0.3 % (0-1); EOSINOPHILS # (AUTO) 0.6 X10'3 (0-0.9); EOSINOPHILS % (AUTO) 3.3 % (0-6); HEMATOCRIT 24.4 % (42.0-52.0); HEMOGLOBIN 7.6 g/dl (14.0-17.9); LYMPHOCYTES # (AUTO) 1.4 X10'3 (1.1-4.8); LYMPHOCYTES % (AUTO) 7.7 % (21-51); MEAN CORPUSCULAR HEMOGLOBIN 27.9 PG (27.0-31.0); MEAN CORPUSCULAR HGB CONC 31.3 g/dL (33.0-36.5); MEAN CORPUSCULAR VOLUME 89.3 FL (78-98); MEAN PLATELET VOLUME 9.1 FL (7.4-10.4); MONOCYTES # (AUTO) 0.5 X10'3 (0-0.9); NEUTROPHILS # (AUTO) 15.3 X10'3 (1.8-7.7); NEUTROPHILS % (AUTO) 85.7 % (42-75); PLATELET COUNT 200 X10'3 (140-440); RED BLOOD COUNT 2.74 X10'6 (4.70-6.10); RED CELL DISTRIBUTION WIDTH 19.9 % (11.5-14.5); WHITE BLOOD COUNT 17.9 X10'3 (4.5-11.0)
[2020-08-22] MEDS: ipratropium/albuterol 3ml nebule NEB SCH ×6 (03:01→23:18)
[2020-08-22 03:17] LABS: ALANINE AMINOTRANSFERASE 22 U/L (12-78); ALBUMIN/GLOBULIN RATIO 0.6 (1.1-1.5); ALKALINE PHOSPHATASE 90 IU/L (46-116); ANION GAP 4 (8-16); ASPARTATE AMINO TRANSFERASE 29 U/L (10-37); BILIRUBIN,TOTAL 0.2 MG/DL (0.1-1.0); BLOOD UREA NITROGEN 19 MG/DL (7-18); BUN/CREATININE RATIO 26.4 (5.4-32.0); CALCIUM 7.9 MG/DL (8.5-10.1); CHLORIDE 111 MMOL/L (99-107); CREATININE 0.72 MG/DL (0.60-1.10); GLUCOSE 145 MG/DL (70-104); PHOSPHORUS 2.4 MG/DL (2.3-4.5); POTASSIUM 3.4 MMOL/L (3.5-5.1); SODIUM 148 MMOL/L (135-145); TOTAL CARBON DIOXIDE 32.9 MMOL/L (24-32); TOTAL PROTEIN 5.6 G/DL (6.4-8.2); eGFR > 90 ML/MIN
[2020-08-22 03:36] LABS: ANISOCYTOSIS 2+; HYPOCHROMASIA 1+; PLATELET ESTIMATE NORMAL; STOMATOCYTES 2+; TOTAL CELLS COUNTED 100
[2020-08-22 03:40] LABS: ABG BASE EXCESS 6.4 mmol/L (-2.0-2.0); ABG HCO3 32.8 mmol/L (22.0-26.0); ABG OXYGEN SATURATION 88.7 % (94-97); ABG PCO2 (T) 60.9 mmHg (35.0-48.0); ABG PO2 (T) 63.1 mmHg (75.0-100.0); ALLEN'S TEST POSITIVE; FCOHb 0.3 % (0.0-3.9); FMetHb 0.1 % (0.0-1.5); FO2Hb 88.3 % (94-97); PEEP 10 cm H2O; RESPIRATORY RATE 22 b/min; TIDAL VOLUME 400 mL; TOTAL HEMOGLOBIN 9.4 G/dl (14.0-18.0)
[2020-08-22] MEDS: potassium Cl 20mEq/100mL bag 100 ML IV PRN ×2 (03:49→05:38)
[2020-08-22] MEDS: midazolam 100mg in NS 100ml 100 ML IV PRN ×3 (04:15→13:50)
--- NOTE | 2020-08-22 05:32 | NUR ---
pt temperature continued to increase, room temp decreased, fan in room, cool cloth on pt forehead, ice packs placed in armpits, groin, and neck. tylenol given as ordered
[2020-08-22] MEDS: docusate sodium 100mg/10ml UD cup OGT SCH ×2 (06:19→20:00)
[2020-08-22] MEDS: methylnaltrexone br 12mg/0.6ml inj***SubQ only SQ SCH (06:20)
[2020-08-22] MEDS: fluconazole-Diflucan 200mg/NS 100 ML IV SCH ×2 (07:28→20:58)
[2020-08-22] MEDS: lactobacillus rhamnosus 10,000 MMU CELLS/CAPSULE PO SCH ×2 (07:30→20:00)
[2020-08-22] MEDS: loratadine 10mg tablet OGT SCH (07:30)
[2020-08-22] MEDS: azithromycin/NS 500mg/250ml 250 ML IV SCH (07:30)
[2020-08-22] MEDS: nortriptyline 25mg capsule OGT SCH (07:30)
[2020-08-22] MEDS: gabapentin 300mg capsule OGT SCH ×2 (07:30→21:04)
[2020-08-22] MEDS: thiamine inj. 100 MG, MVI, adult No.4 with vit. K 10 ML in dextrose 5% water 500ml 500 ML IV SCH ×3 (07:30)
[2020-08-22] MEDS: pantoprazole 40 MG vial IV SCH ×2 (07:31→20:58)
[2020-08-22] MEDS: fluticasone nasal spray 16GM bottle NS SCH (07:31)
[2020-08-22] MEDS: heparin, porcine 5000 units/ml vial SQ SCH ×2 (07:31→21:00)
[2020-08-22] MEDS: folic acid 1mg/0.2ml inj IV SCH (07:31)
[2020-08-22] MEDS: lisinopril 20mg tablet OGT SCH (08:00)
[2020-08-22] MEDS: spironolactone 25 MG tablet OGT SCH ×3 (08:00→20:59)
[2020-08-22] MEDS: K and/or MAG REPLACEMENT MC SCH ×2 (08:00→20:00)
[2020-08-22] MEDS ORDERED: furosemide 40mg/4ml inj IV SCH (08:00)
--- NOTE | 2020-08-22 10:30 | NUR ---
During rounds, MD aware of patient's HR in the 120s. Per Dr. Peng, possibly from too much diuresis; orders to decrease Lasix to 20mg daily. Other vital signs stable at this time. Also, patient appears to be slightly mottled, MD at bedside to assess. Orders for paralysis and rotoprone. Will continue to monitor.
[2020-08-22] MEDS: CISatracurium besylate inj. 100 MG in normal saline 100ml IV soln 90 ML IV PRN ×2 (11:51→18:11)
--- NOTE | 2020-08-22 13:12 | NUR ---
Reassessment: Intubated, sedated. Pending prone position. Tolerating Tube feeding at goal rate. Copious stool output, now has rectal tube. Pt's stool output likely r/t BID colace, colace now being held. Sodium 148, receiving 200ml q 4 hour water flushes. Rec: 1. OGTF per MD using Vital High Protein at 85ml/hr goal. Initiate at 20ml/hr and advance to 40ml/hr following 12 hours per authorization rep; then advance as tolerated Q8 to goal. To provide 2040ml volume, 2040 kcals, 1714ml free water, and 179g protein. 2. additional water flush 200ml q 4 hours 3. PALB Q /; daily wts 4. bowel care as needed, hold with copious stool output 5. thiamin, folic, MVI for etoh hx 6. when extubated, advance diet as medically indicated to heart healthy; consider DONOR SERVICES SPECIALIST BSS Addendum: 08/22/20 at [address] Amended: Links added.
--- NOTE | 2020-08-22 17:00 | NUR ---
Patient's HR continues to be in the 120s/130s and Fever slowly trending down; blood pressure stable. Orders to start Merrem IV antibiotics.
--- NOTE | 2020-08-22 18:00 | NUR ---
Patient placed on Rotoprone bed; tolerated well with slight increase in HR
[2020-08-22] MEDS: meropenem inj 1 GM in normal saline 100ml IV soln 100 ML IV SCH (18:12)
--- NOTE | 2020-08-22 18:31 | NUR ---
Problems reprioritized. Patient report given, questions answered & plan of care reviewed with Corona VILLANUEVA.
--- NOTE | 2020-08-22 20:00 | NUR ---
PATIENT IS CURRENTLY ROTATING PRONE 62 DEGREES L/R IN ROTOPRONE BED. FREQUENT PEAK PRESSURE ALARMS (>40). SXN FOR NOTHING. PATIENT IS NOT OVERBREATHING VENT BUT OCCASSIONAL POSSIBLE HICCUP TYPE MVMT - INCREASED NIMBEX GTT. NO COUGH NO GAG. UNFORTUNATELY - DUE TO PRONE/ROTOPRONE, ATTEMPT TO GET AN ACCURATE TO4 IS IMPOSSIBLE. IM NOT GETT Addendum: 08/23/20 at 0103 by Corona Wiggins RN MEDITECH CLOSED UNEXPECTEDLY: I COULD NOT GET ANY REACTION WITH TO4 AT EITHER THUMB EVEN WITH SAILBOAT CAPTAIN HELP. UNABLE TO USE FACIAL DUE TO FACIAL BRACE - WILL RE-CHECK WHEN ABLE TO SUPINE. ALSO TO ASSESS SKIN, PALOMO ETC - ALL FRONT ASSESSMENT TO BE COMPLETED WHEN SUPINE. Addendum: 08/23/20 at 0403 by Corona Wiggins RN WAITING FOR PARTS TO SET UP ETCO2, NONE ON THIS FLOOR - TECH OUT TO FIND PIECE NEEDED TO MONITOR
[2020-08-22] MEDS: traZODone 50mg tablet OGT SCH (21:00)
[2020-08-22] MEDS: atorvastatin 10mg tablet OGT SCH (21:00)
[2020-08-22] MEDS: polyethylene glycol 3350 17gm powd pack PO SCH (21:00)
--- NOTE | 2020-08-22 22:20 | NUR ---
ATTEMPTED TO SUPINE PATIENT FOR ASSESSMENT, MOUTH CARE ETC - WE WERE ROTATING TO SUPINE, PATIENT DROPS SATS TO 66 % WITH GOOD WAVE AND CORRELATES WITH HR. LITERALLY PLACED SUPINE AND HAD TO RE-PRONE IMMEDIATELY. UNABLE TAKE MASK OFF FOR TOF, FACIAL CARE, UNABLE TO ASSESS FRONT ETC. AFTER PRONE - WITHIN 2-3 MINUTES SATS UP TO 95-98 % - NOT LONG TO RECOVER AT ALL. RT IS AWARE OF THIS EVENT
[2020-08-22] MEDS: insulin glargine (Lantus) pen - multi-dose SQ SCH (23:00)
[2020-08-22] MEDS: insulin regular, human U-100 3ml vial - multi-dose SQ SCH (23:01)
[2020-08-23] VITALS (29 sets, daily range): BP systolic 90–141; BP diastolic 46–88
[2020-08-23] MEDS: meropenem inj 1 GM in normal saline 100ml IV soln 100 ML IV SCH ×3 (00:07→15:41)
[2020-08-23] MEDS: midazolam 100mg in NS 100ml 100 ML IV PRN ×5 (00:18→22:18)
--- NOTE | 2020-08-23 00:30 | NUR ---
I HAVE COORDINATED WITH CXR AND RT TO COMPLETE THE SUPINE POSITION FOR CXR, ABG, AND RT NEED TO CHANGE ETT SECUREMENT DEVICE. CXR TECH AND RT AWARE OF DESATTING ISSUE PREVIOUSLY AND NEED FOR EFFICIENCY. SERVICE OFFICER ALSO INFORMED FOR MAXIMAM HELP/EFFICIENCY DURING THIS PLANNED TURN TO SUPINE AT 02:00
[2020-08-23] MEDS: propofol 1000mg/100ml bottle 100 ML IV SCH ×6 (01:17→21:03)
[2020-08-23] MEDS: mineral oil/petrolatum ophthal oint EACHEYE SCH ×4 (01:47→20:50)
[2020-08-23] MEDS: metoclopramide 5 mg/ml inj IV SCH ×4 (01:47→20:00)
[2020-08-23] MEDS: insulin regular, human U-100 3ml vial - multi-dose SQ SCH ×4 (01:51→21:38)
[2020-08-23 01:58] LABS: EOSINOPHILS # (AUTO) 0.2 X10'3 (0-0.9); HEMOGLOBIN 8.7 g/dl (14.0-17.9); LYMPHOCYTES # (AUTO) 0.6 X10'3 (1.1-4.8); LYMPHOCYTES % (AUTO) 2.2 % (21-51); MEAN CORPUSCULAR HEMOGLOBIN 28.8 PG (27.0-31.0); RED BLOOD COUNT 3.01 X10'6 (4.70-6.10)
[2020-08-23 02:00] LABS: BASOPHILS % (AUTO) 0 % (0-1); EOSINOPHILS % (AUTO) 0.7 % (0-6); HEMATOCRIT 27.9 % (42.0-52.0); MEAN CORPUSCULAR HGB CONC 31.1 g/dL (33.0-36.5); MEAN CORPUSCULAR VOLUME 92.6 FL (78-98); MEAN PLATELET VOLUME 9.2 FL (7.4-10.4); MONOCYTES # (AUTO) 0.6 X10'3 (0-0.9); MONOCYTES % (AUTO) 2.2 % (2-12); NEUTROPHILS # (AUTO) 25.4 X10'3 (1.8-7.7); NEUTROPHILS % (AUTO) 94.9 % (42-75); PLATELET COUNT 188 X10'3 (140-440); RED CELL DISTRIBUTION WIDTH 19.8 % (11.5-14.5)
[2020-08-23 02:03] LABS: ALANINE AMINOTRANSFERASE 62 U/L (12-78); ALBUMIN 1.8 G/DL (3.4-5.0); ALBUMIN/GLOBULIN RATIO 0.5 (1.1-1.5); ALKALINE PHOSPHATASE 106 IU/L (46-116); ANION GAP 3 (8-16); BILIRUBIN,TOTAL 0.3 MG/DL (0.1-1.0); BLOOD UREA NITROGEN 19 MG/DL (7-18); BUN/CREATININE RATIO 20.2 (5.4-32.0); CALCIUM 7.3 MG/DL (8.5-10.1); CHLORIDE 111 MMOL/L (99-107); CREATININE 0.94 MG/DL (0.60-1.10); GLUCOSE 184 MG/DL (70-104); MAGNESIUM 1.8 MG/DL (1.5-2.4); PHOSPHORUS 2.6 MG/DL (2.3-4.5); SODIUM 148 MMOL/L (135-145); TOTAL CARBON DIOXIDE 34.3 MMOL/L (24-32); TOTAL PROTEIN 5.7 G/DL (6.4-8.2); eGFR 84 ML/MIN
--- NOTE | 2020-08-23 02:05 | NUR ---
CXR CHRISTIANO LIANG AND 3 RT'S IN FOR THIS SUPINE TUEN. GOAL WAS FOR CXR, ABG AND TO CHANGE ETT SECUREMENT DEVICE. PATIENT TOLERATED LONG ENOUGH FOR CXR AND ABG - THEN SATS DROPPED GRADUALLY LKOW 58% WHILE WE WERE TRYING TO PACK PATIENT BACK INTO BED. SOON PRONE AND RT OF 11V DEGREES, SATS RETURN FAIRLY QUICKLY TO 95% +. ABG RESULTS :7.175/92.4 (PCO2)/60.6 (PO2)/35.9 (HCO3). RATE ON VENT TO 24 AND TV TO 450. CALL TO TARYN TRIPP BARREL RIBS SOLDERER TO UPDATE RECENT EVENTS. ALSO MADE TARYN AWARE I HAVE BEEN UNSUCCESSFUL IN GETTING PATIENT TEMP DOWN FROM 39.5 REGARDLESS OF TYLENOL PT, COOLING BLANKET, FAN AND ROOM TEMP LOW POSSIBLE. ORDER FOR IV TYLENOL. RE-PLANNED A SUPINE TURN NEAR 04:30 FOR RT TO TRY TO CHANGE ETT SECUREMENT DEVICE AND ALSO GET ANOTHER ABG OFF THESE VENT CHANGES. ALL ARE AWARE OF IMPORTANCE OF EFFICIENCY. RT WAS PREPARED THIS TURN HOWEVER WITH THE OTHER TASKS NEEDED, PATIENT DID NOT LAST LONG [id number] FOR THEIR TASK TO BE COMPLETED THIS TIME
[2020-08-23 02:10] LABS: ABG BASE EXCESS 5.9 mmol/L (-2.0-2.0); ABG HCO3 35.9 mmol/L (22.0-26.0); ABG OXYGEN SATURATION 81.3 % (94-97); ABG PCO2 (T) 102.6 mmHg (35.0-48.0); ABG PO2 (T) 60.6 mmHg (75.0-100.0); ALLEN'S TEST POSITIVE; FCOHb 0.3 % (0.0-3.9); FMetHb 0.3 % (0.0-1.5); FO2Hb 80.8 % (94-97); PATIENT TEMPERATURE 39.4; PEEP 10 cm H2O; RESPIRATORY RATE 22 b/min; TIDAL VOLUME 400 mL; TOTAL HEMOGLOBIN 9.8 G/dl (14.0-18.0)
[2020-08-23] MEDS: ipratropium/albuterol 3ml nebule NEB SCH ×6 (02:23→23:09)
[2020-08-23 02:29] LABS: ASPARTATE AMINO TRANSFERASE 54 U/L (10-37); POTASSIUM 4.3 MMOL/L (3.5-5.1)
[2020-08-23] MEDS ORDERED: acetaminophen 1,000mg/100ml IV 100 ML IV ONE ×2 (02:35→03:00)
[2020-08-23] MEDS: FENTANYL-0.9 % NACL/PF 100 ML IV PRN ×5 (02:37→18:22)
[2020-08-23] MEDS: CISatracurium besylate inj. 100 MG in normal saline 100ml IV soln 90 ML IV PRN ×5 (02:37→20:44)
[2020-08-23 02:40] LABS: WHITE BLOOD COUNT 26.7 X10'3 (4.5-11.0)
--- NOTE | 2020-08-23 02:51 | NUR ---
PATIENT WEIGHT HAD TO BE ADJUSTED ON THIS ROTOPRONE - I ADJUSTED IT WITH YESTERDAY MORNINGS WEIGHT 93 KG BECAUSE THIS ROTOPRONE WAS READING 5.6 KG. TODAYS WEIGHT IS JUST A REPEAT OF YESTERDAY FOR THIS REASON
[2020-08-23 03:16] LABS: ANISOCYTOSIS 2+; NUCLEATED RED BLOOD CELLS 1 /100WBC (0-0); PLATELET ESTIMATE NORMAL; TOTAL CELLS COUNTED 100
[2020-08-23 03:17] LABS: HYPOCHROMASIA 1+; POLYCHROMASIA FEW; STOMATOCYTES 2+
--- NOTE | 2020-08-23 03:19 | NUR ---
UNABLE TO FIX/REPOSITION BIS PROBE IT IS UNDER THE FACE UTE AND I CAN NOT GET TO IT WHILE PATIENT IS PRONE. WHEN WE SUPINE FOR RT NEAR 0430 - I WILL ADDRESS THIS
[2020-08-23] MEDS: NORepinephrine 8mg/ 250ml NS 250 ML IV SCH ×2 (03:51→11:47)
--- NOTE | 2020-08-23 04:10 | NUR ---
TARYN TRIPP NP AWARE WBC 26.7 UP FROM YESTERDAY 17.9. BLOOD CX AND SPUTUM SENT ON 08/20 - NO URINE WAS SENT . ORDER TO SEND URINE FOR CULTURE
--- NOTE | 2020-08-23 04:30 | NUR ---
THIS TIME , ABG WAS DRAWN BEFORE THE TURN TO SUPINE (EARLIER WAS DRAWN AFTER SUPINE AND PATIENT WAS ALREADY DECLINING). WHEN PATIENT IS PRONE, VSS, SATS ARE 98-100%. AFTER THE ABG WAS DRAWN THIS TIME, PATIENT WAS SUPINED. RT IN TO CHANGE ETT SECUREMENT DEVICE. I ATTEMPTED TO GET A BIS SENSOR TO STAY ON PATIENT. I WAS UNABLE TO EVEN USING SKIN PREP AND BENZOIN. [employer] REVENUE OFFICER IN TO HELP - ALSO UNABLE TO KEEP IN PLACE DUE TO GREASY/SWEATY EVEN AFTER WASHING. EYE WIDE OPEN - TO4 COMPLETED / ON ON WHEEL. LACRILUBE APPLIED TO B/L EYES, GAUZE AND PAPER TAPE TO BOTH EYES. UNABLE TO BATHE PATIENT OR ANY OTHER NURSING CARE - SATS TO 63 %. PACKED IN AND RETURNED TO PRONE AND 11 DEGREES RT. PATIENT SATS RETURN TO 85-87 WITHIN MINUTES. NIMBEX BOLUSED PER PROTOCOL AND INCREASED GTT Addendum: 08/23/20 at 0535 by Corona Wiggins RN THE NOTE ABOVE SHOULD HAVE BEEN TIMED CLOSER TO 5 AM
[2020-08-23 04:41] LABS: ABG HCO3 34.8 mmol/L (22.0-26.0); ABG OXYGEN SATURATION 98.2 % (94-97); ABG PO2 (T) 141.5 mmHg (75.0-100.0); ALLEN'S TEST POSITIVE; FCOHb 0.3 % (0.0-3.9); FMetHb 0.3 % (0.0-1.5); FO2Hb 97.6 % (94-97); PATIENT TEMPERATURE 39.8; PEEP 10 cm H2O; RESPIRATORY RATE 24 b/min; TIDAL VOLUME 450 mL; TOTAL HEMOGLOBIN 9.6 G/dl (14.0-18.0)
[2020-08-23 05:17] LABS: CLARITY,URINE SLIGHTLY CLOUDY (Clear); COLOR,URINE YELLOW (Yellow); GLUCOSE, URINE NEGATIVE (Neg); KETONES,URINE NEGATIVE (Neg); LEUKOCYTE ESTERASE ,URINE NEGATIVE (Neg); NITRITES, URINE NEGATIVE (Neg); OCCULT BLOOD,URINE MODERATE (Neg); PROTEIN,URINE 30 mg/dl (Neg); UROBILINOGEN,URINE 0.2 E.U/dL (0.2-1.0)
[2020-08-23 05:23] LABS: UA COLLECTION TYPE FOLEY CATH
[2020-08-23 05:24] LABS: BACTERIA,URINE FEW /HPF (Neg); RBC,URINE 0-2 /HPF (0-2); SQUAMOUS EPITHELIAL CELL,UR FEW /LPF (FEW); URIC ACID CRYSTALS 2+ /HPF (NEGATIVE); WBC,URINE NONE SEEN /HPF (0-4)
--- NOTE | 2020-08-23 05:37 | NUR ---
TEMPERATURE IS 40.2 ORALLY AND VIA CORE THERMOMETER. COOLING BLANKET ON, ROOM TEMP IS AT LOWEST, IV TYLENOL WAS GIVEN. FAN IS ON BUT IT BARELY HITS PATIENT DUE TO ROTOPRONE IN PRONE POSITION AND COOLING BLANKET ON BACK. ICE PACKS ADDED TO BACK, NECK & AXILLA
[2020-08-23] MEDS: loratadine 10mg tablet OGT SCH (07:35)
[2020-08-23] MEDS: gabapentin 300mg capsule OGT SCH ×2 (07:35→20:51)
[2020-08-23] MEDS: nortriptyline 25mg capsule OGT SCH (07:35)
[2020-08-23] MEDS: lactobacillus rhamnosus 10,000 MMU CELLS/CAPSULE PO SCH ×2 (07:35→20:51)
[2020-08-23] MEDS: pantoprazole 40 MG vial IV SCH ×2 (07:35→20:51)
[2020-08-23] MEDS: docusate sodium 100mg/10ml UD cup OGT SCH ×2 (07:35→20:00)
[2020-08-23] MEDS: thiamine inj. 100 MG, MVI, adult No.4 with vit. K 10 ML in dextrose 5% water 500ml 500 ML IV SCH ×3 (07:36)
[2020-08-23] MEDS: folic acid 1mg/0.2ml inj IV SCH (07:36)
[2020-08-23] MEDS: fluconazole-Diflucan 200mg/NS 100 ML IV SCH ×2 (07:36→20:50)
[2020-08-23] MEDS: azithromycin/NS 500mg/250ml 250 ML IV SCH (07:36)
[2020-08-23] MEDS: fluticasone nasal spray 16GM bottle NS SCH (07:44)
[2020-08-23] MEDS: furosemide 20 MG/2 ML vial IV SCH (07:51)
[2020-08-23] MEDS: lisinopril 20mg tablet OGT SCH (08:00)
[2020-08-23] MEDS: K and/or MAG REPLACEMENT MC SCH ×2 (08:00→20:00)
[2020-08-23] MEDS: spironolactone 25 MG tablet OGT SCH ×3 (08:00→20:56)
[2020-08-23] MEDS: heparin, porcine 5000 units/ml vial SQ SCH ×2 (08:25→20:55)
--- NOTE | 2020-08-23 09:45 | NUR ---
Spoke with Dr. Lawson at the bedside; MD aware of elevated temperatures; okay to give PO tylenol on top of IV tylenol given at noc. Continue cooling blanket, ice pack, and fan. MD also aware of elevated HR; no new orders at this time.
[2020-08-23] MEDS: acetaminophen 325mg/10.15ml oral unit dose solution OGT PRN (10:27)
[2020-08-23] MEDS: hydrocortisone sod succ/PF 100mg/2ml inj. IV SCH ×2 (13:30→20:51)
[2020-08-23] MEDS ORDERED: propofol 1000mg/100ml bottle 100 ML IV SCH (15:10)
--- NOTE | 2020-08-23 18:30 | NUR ---
REPORT RECEIVED FROM ABIGAIL VILLANUEVA. PATIENT WITH VSS. ROTATING PRONE. PEAK PRESSURE NOTED AT 43-44.
--- NOTE | 2020-08-23 20:30 | NUR ---
PATIENT TOLERATED SUPINE FOR NEARLY 30 MIN BEFORE SATS DROPPED TO MID 80 'S. TO4 4/4 - NIMBEX BOLUSED PER PROTOCOL AND INCREASED GTT. I HAVE MAXED SEDATION/PAIN MED TO BE HUMANE THIS PATIENT IS PARALYZED, ROTOPRONING, VENTED ETC. I UPDATED TARYN TRIPP NP ABOUT THIS. PLEASE NOTE - BEFORE I WAS ABLE TO GET TO FACIAL NERVE DUE TO MASK/PRONE, I ATTEMPTED TO4 ON B/L ULNARS - I GOT 0/4 ON BOTH. FROM EDEMA? FROM POSITIONING OF ARMS (PRONE)? I DO NOT KNOW BUT THIS IS CLEARLY DIFFERENT FROM A CLEAR 4/4 ON FACIAL. I JUST DO NOT HAVE ACCESS TO FACIAL NERVE DUE TO PRONE/MASK. PATIENT SATS RETURN TO LOW TO MID 90'S AFTER RE-PRONING AND 11 DEGREES RT. Addendum: 08/24/20 at 0313 by Corona Wiggins RN I WAS ABLE TO DO MOUTH CARE, EYE CARE, PALOMO CARE, QUICK FRONT CHG BATH/WIPES. DC'D BOTH PIV'S (R WRIST, LEFT FOREARM). BOTH WERE RED AND PUFFY. LEFT DID NOT FLUSH, RIGHT CATHETER WAS BENT.
[2020-08-23] MEDS: atorvastatin 10mg tablet OGT SCH (20:51)
[2020-08-23] MEDS: polyethylene glycol 3350 17gm powd pack PO SCH (20:56)
[2020-08-23] MEDS: traZODone 50mg tablet OGT SCH (20:56)
[2020-08-23] MEDS: insulin glargine (Lantus) pen - multi-dose SQ SCH (21:39)
[2020-08-24] VITALS (33 sets, daily range): BP systolic 88–164; BP diastolic 42–87
[2020-08-24] MEDS: propofol 1000mg/100ml bottle 100 ML IV SCH ×7 (00:12→22:36)
[2020-08-24] MEDS: FENTANYL-0.9 % NACL/PF 100 ML IV PRN ×8 (00:14→22:36)
[2020-08-24] MEDS: NORepinephrine 8mg/ 250ml NS 250 ML IV SCH (00:17)
[2020-08-24] MEDS: CISatracurium besylate inj. 100 MG in normal saline 100ml IV soln 90 ML IV PRN ×7 (00:17→22:37)
[2020-08-24] MEDS: meropenem inj 1 GM in normal saline 100ml IV soln 100 ML IV SCH ×4 (00:17→23:32)
[2020-08-24] MEDS: insulin regular, human U-100 3ml vial - multi-dose SQ SCH ×4 (01:29→20:54)
[2020-08-24] MEDS: mineral oil/petrolatum ophthal oint EACHEYE SCH ×5 (01:46→20:38)
[2020-08-24] MEDS: metoclopramide 5 mg/ml inj IV SCH ×4 (01:46→20:00)
[2020-08-24] MEDS: hydrocortisone sod succ/PF 100mg/2ml inj. IV SCH ×2 (01:46→07:38)
--- NOTE | 2020-08-24 02:00 | NUR ---
PLANNED SUPINE FOR CXR AND NURSING AND RT CARE. PATIENT DROPPED SATS EARLIER NEAR 2300 AFTER SUCTIONING. REMAINED ON 80 FIO2 AFTER A LONG RECOVERY PERIOD BACK TO 94 % - ABOUT 45 MINUTES TO RECOVER. NOTHING REALLY PRECEDED THIS DROP EXCEPT THE SXN OF ETT FOR SMALL AMOUNT THIN WHITE/CLEAR. AT THE SAME TIME, LARGE AMOUNTS ORAL AND NASAL MUCOUS - CLEAR - WAS SUCTIONED. BEFORE THE PLANNED SUPINE, PATIENT WAS ON 80 % FIO2 MAINTAINING SATS 92-94 % WITH PIPS STAYING 43-45. WHILE SUPINING FOR CXR, FIO2 TO 100 % FOR THIS TUURN. PATIENT SATS TO LOW 80'S IMMEDIATELY WITH TURNING. STAYED SUPINE FOR DURATION OF THE CXR (3-5 MINUTES TO REPOSITION THE PLATE). SATS LOW 79 %, NO TIME FOR FACIAL MASK TO BE REMOVED. RE-PRONED IMMEDIATELY. SATS VERY QUICKLY WENT TO 94 - 96 % BUT CONSTANT PEAK PRESSURING 44-46. MONITORING CLOSELY AT THIS POINT - B/L BREATH SOUNDS UNCHANGED. ETT SXN FOR NOTHING. ETT IS PROPERLY PLACED, NOT KINKED. RT IS DUE TO COME FOR ROUNDS... PATIENT HAD CHG BATH DURING FIRST TURN EARLIER WHEN HEN TOLERATED THE TURN. I WAS UNABLE TO TAKE THE BED APART AND CHANGE SHEET AND PAD. I WAS UNABLE TO CHECK OCCIPITAL FOR SKIN BREAKDOWN, UNABLE TO REPLACE BIS, UNABLE TO FLUSH RECTAL TUBE - I CAN NOT GET TO THE PORTS TO FLUSH AND LET DOWN THE BALLOON WITH PATIENT PRONE. I LET THE BALLOON DOWN AND FLUSHED IN BEGINNING OF SHIFT WHEN PATIENT TOLERATED SUPINE FOR LONGER TIME. TO2 ON RIGHT ULNAR = 0/4 BUT I DO NOT TRUST THIS. EARLIER WHEN I WAS UNABLE TO GET TO FACIAL NERVE FOR TO4 DUE TO PRONE , ULNAR READ 0/4 THEN SOON AFTER GOT 4/4 ON FACIAL ON SAME SETTING - 5. WILL TRY AGAIN BEFORE SHIFT ENDS TO SUPINE AND GET FACIAL MASK OFF IF PATIENT IS TOLERATING THE TURN.
[2020-08-24 02:06] LABS: MAGNESIUM 1.4 MG/DL (1.5-2.4); PHOSPHORUS 1.8 MG/DL (2.3-4.5)
[2020-08-24 02:29] LABS: ALBUMIN 1.3 G/DL (3.4-5.0); ANION GAP 8 (8-16); BLOOD UREA NITROGEN 18 MG/DL (7-18); BUN/CREATININE RATIO 28.1 (5.4-32.0); CALCIUM 6.2 MG/DL (8.5-10.1); CHLORIDE 116 MMOL/L (99-107); CREATININE 0.64 MG/DL (0.60-1.10); GLUCOSE 173 MG/DL (70-104); POTASSIUM 3.5 MMOL/L (3.5-5.1); SODIUM 152 MMOL/L (135-145); TOTAL CARBON DIOXIDE 28.3 MMOL/L (24-32); eGFR > 90 ML/MIN
[2020-08-24] MEDS: ipratropium/albuterol 3ml nebule NEB SCH ×6 (02:53→23:00)
[2020-08-24 02:55] LABS: BASOPHILS % (AUTO) 0.1 % (0-1); EOSINOPHILS % (AUTO) 0.1 % (0-6); HEMATOCRIT 25.8 % (42.0-52.0); LYMPHOCYTES # (AUTO) 0.5 X10'3 (1.1-4.8); LYMPHOCYTES % (AUTO) 2.9 % (21-51); MEAN CORPUSCULAR HEMOGLOBIN 28.3 PG (27.0-31.0); MEAN CORPUSCULAR HGB CONC 31.2 g/dL (33.0-36.5); MEAN CORPUSCULAR VOLUME 90.8 FL (78-98); MONOCYTES # (AUTO) 0.6 X10'3 (0-0.9); MONOCYTES % (AUTO) 3.6 % (2-12); NEUTROPHILS % (AUTO) 93.3 % (42-75); PLATELET COUNT 171 X10'3 (140-440); RED BLOOD COUNT 2.85 X10'6 (4.70-6.10); WHITE BLOOD COUNT 18.2 X10'3 (4.5-11.0)
[2020-08-24 03:10] LABS: ABG BASE EXCESS 9.4 mmol/L (-2.0-2.0); ABG OXYGEN SATURATION 94.1 % (94-97); ABG PCO2 (T) 71.2 mmHg (35.0-48.0); ABG PO2 (T) 77.2 mmHg (75.0-100.0); ALLEN'S TEST POSITIVE; FCOHb 0.3 % (0.0-3.9); FO2Hb 93.8 % (94-97); PATIENT TEMPERATURE 37.1; PEEP 10 cm H2O; RESPIRATORY RATE 24 b/min; TIDAL VOLUME 450 mL; TOTAL HEMOGLOBIN 9.6 G/dl (14.0-18.0)
[2020-08-24] MEDS: midazolam 100mg in NS 100ml 100 ML IV PRN ×5 (03:27→22:37)
[2020-08-24 05:16] LABS: TOTAL CELLS COUNTED 100
[2020-08-24 05:17] LABS: ANISOCYTOSIS 2+; HYPOCHROMASIA 1+; PLATELET ESTIMATE NORMAL; POLYCHROMASIA FEW; STOMATOCYTES 2+
--- NOTE | 2020-08-24 05:22 | NUR ---
PATIENT WAS SUPINED ONE LAST TIME. DESATS 80'S WITH TURN - FACE MASK REMOVED QUICKLY WITH 2 RN AND 1 RT FOR SAFETY. EYE CARE COMPLETED. EYES TAPED CLOSED AFTER LACRILUBE. MOUTH CARE. BIS REPLACED HOWEVER DIFFICULT TO KEEP IN PLACE FOR A READING. DIGNISHIELD FLUSHED, BALLOON LET DOWN AND REINFLATED, ALLERGY BAND PLACED, TO4 WAS 4/4. SINCE PATIENT WAS COMPLIANT WITH VENT, I DID NOT BOLUS OR INCREASE NIMBEX GTT. BACK OF HEAD WAS CHECKED FOR BREAKDOWN - INTACT. WET FROM SWEAT BUT NON OPEN AREAS. MOUTH CARE, SMALL SCAB ON UPPER LIP. NOT OPEN/NO DRAINAGE. SATS DROPPED LOW 66 %. WRAPPED UP QUICKLY AND RE-PRONED. PATIENT HAS TAKEN LONGER TO RECOVER AFTER PRONING. 100 % SXN UNTIL ABLE TO STAY ABOVE 90%. WILL CONTINUE TO MONITOR. MAY NEED TO INCREASE FIO2.
--- NOTE | 2020-08-24 06:57 | NUR ---
Patient in room ICU 2039. I have received report from Corona VILLANUEVA and had the opportunity to ask questions and assume patient care. Addendum: 08/24/20 at 0657 by Juanita Head RN Amended: Links added.
[2020-08-24] MEDS: methylnaltrexone br 12mg/0.6ml inj***SubQ only SQ SCH (07:38)
[2020-08-24] MEDS: fluticasone nasal spray 16GM bottle NS SCH (07:38)
[2020-08-24] MEDS: docusate sodium 100mg/10ml UD cup OGT SCH ×2 (07:38→20:00)
[2020-08-24] MEDS: loratadine 10mg tablet OGT SCH (07:39)
[2020-08-24] MEDS: spironolactone 25 MG tablet OGT SCH (07:39)
[2020-08-24] MEDS: pantoprazole 40 MG vial IV SCH ×2 (07:39→20:38)
[2020-08-24] MEDS: lactobacillus rhamnosus 10,000 MMU CELLS/CAPSULE PO SCH ×2 (07:39→20:39)
[2020-08-24] MEDS: gabapentin 300mg capsule OGT SCH ×2 (07:39→20:39)
[2020-08-24] MEDS: nortriptyline 25mg capsule OGT SCH (07:41)
[2020-08-24] MEDS: heparin, porcine 5000 units/ml vial SQ SCH ×2 (07:41→20:39)
[2020-08-24] MEDS: azithromycin/NS 500mg/250ml 250 ML IV SCH (07:42)
[2020-08-24] MEDS: folic acid 1mg/0.2ml inj IV SCH (07:44)
[2020-08-24] MEDS: lisinopril 20mg tablet OGT SCH (08:00)
[2020-08-24] MEDS: K and/or MAG REPLACEMENT MC SCH ×2 (08:00→20:00)
[2020-08-24] MEDS: furosemide 20 MG/2 ML vial IV SCH (08:01)
--- NOTE | 2020-08-24 08:33 | NUR ---
Pt. desats to 87% when turned to left side. fork repairer aware.
[2020-08-24] MEDS: fluconazole-Diflucan 200mg/NS 100 ML IV SCH ×2 (08:39→20:31)
--- NOTE | 2020-08-24 09:29 | NUR ---
Dr. Lawson here. Aware of heart rate and increased temp. Bronch to be done now.
--- NOTE | 2020-08-24 09:44 | NUR ---
Dr. Lawson wanted to bronch pt. but when pt. was in the supine position, SP02 69%. Bronch was cancelled. Pt. SP02 73% now. HR 149. RT and charge nurse at bedside.
--- NOTE | 2020-08-24 09:56 | NUR ---
RN called ex- Stephanie to suggest she come in and see pt. Nursing hide house supervisor, charge nurse and Dr. Lawson agreed with the visit. Stephanie said she will come if she cannot get a ride here. Pt. remains a full code.
[2020-08-24] MEDS ORDERED: methylPREDNISolone sod succ 125mg/2ml vial IV SCH (10:10)
--- NOTE | 2020-08-24 10:21 | NUR ---
Pt. daughter called. RN updated her on pt. status.
--- NOTE | 2020-08-24 10:23 | NUR ---
Medicated with Tylenol for temp 38.5. Fan and cooling blanket on pt. as well. Dr. Lawson aware of temp.
[2020-08-24] MEDS: acetaminophen 325mg/10.15ml oral unit dose solution OGT PRN ×2 (10:24→20:30)
[2020-08-24] MEDS: thiamine inj. 100 MG, MVI, adult No.4 with vit. K 10 ML in dextrose 5% water 500ml 500 ML IV SCH ×3 (10:28)
[2020-08-24] MEDS ORDERED: acetaminophen 325mg/10.15ml oral unit dose solution OGT ONE (10:30)
--- NOTE | 2020-08-24 10:38 | NUR ---
Son here. RN updated son. Dr. Lawson talking with son.
--- NOTE | 2020-08-24 10:43 | NUR ---
SP02 remain in the 70s, HR 146, FI02 is 100%.
[2020-08-24] MEDS ORDERED: methylPREDNISolone SOD SUCC 1000 MG in NORMAL SALINE 100ml IV SCH (11:00)
--- NOTE | 2020-08-24 11:04 | NUR ---
Right should noted to be abraded due to velcro on top walker padding. Foam dressing applied to protect skin from further injury.
[2020-08-24 11:34] LABS: HIV ANTIBODY 1&2 RAPID NON-REACTIVE (Neg)
[2020-08-24] MEDS: sulfmethoxaz/trimethoprim inj 20 ML in dextrose 5%-water 230 ML IV SCH ×2 (11:52→19:17)
[2020-08-24] MEDS: DEXTROSE 5% IV SCH (11:53)
[2020-08-24] MEDS: WATER IV SCH (11:53)
[2020-08-24] MEDS: METHYLPREDNISOLONE SOD SUCC IV SCH (11:53)
--- NOTE | 2020-08-24 12:15 | NUR ---
Dr. Lawson checked on pt. Aware that pt's SP02 are in the 70s.
--- NOTE | 2020-08-24 13:54 | NUR ---
Replacing mag per protocol. SP02 66% now. Charge nurse aware.
--- NOTE | 2020-08-24 14:02 | NUR ---
Patient's dtr. Marianela called. Stated she is driving here but is 6 hours away. Charge nurse ok'd her visiting today.
--- NOTE | 2020-08-24 14:12 | NUR ---
VS: Temp. 37.7, HR 128, SP02 66% (on 100% FI02 and peep 10), RR 24, BP 122/63.
--- NOTE | 2020-08-24 14:34 | NUR ---
RT notified of SP02 60s.
--- NOTE | 2020-08-24 14:57 | NUR ---
SP02 71% after nebulizer treatment.
[2020-08-24] MEDS: sodium phosphate inj. 15 MMOL in dextrose 5%-water 250 ML IV PRN (15:21)
--- NOTE | 2020-08-24 18:15 | NUR ---
Problems reprioritized. Patient report given, questions answered & plan of care reviewed with Corona VILLANUEVA.
--- NOTE | 2020-08-24 18:30 | NUR ---
report received from nagi lopez. hemodynamicaaly stable. sats in 70's on 100 % fio2. this is unchanged from day shift events. per report md aware. we are currently waiting for family to discuss further options. patient is still a full code, currently prone and rotating. i will not even attempt supine this patient. max sedation and max pain med gtt's infusing.
--- NOTE | 2020-08-24 20:00 | NUR ---
due to inability to supine, unable to do full assessment for obvious reasons. patient is in no distress and no s/sx pain/fear. o2 sats remain 70 's. temperature is rising, tylenol to be given
[2020-08-24] MEDS: atorvastatin 10mg tablet OGT SCH (20:39)
[2020-08-24] MEDS: polyethylene glycol 3350 17gm powd pack PO SCH (20:40)
[2020-08-24] MEDS: insulin glargine (Lantus) pen - multi-dose SQ SCH (20:58)
--- NOTE | 2020-08-24 21:00 | NUR ---
tylenol pt, cooling blanket on patients back
--- NOTE | 2020-08-24 22:51 | NUR ---
daughter arrived at 2130. all procedures explained. icu routine and recent events explained. support given. i asked if daughter kaela wanted me to call SPRINKLER DRIVER now or wait for brother otilia. she requested to wait for otilia then call for both to speak to leonor carter np at the same time. i have called and left a message for otilia to come to icu or call icu or sister. no response thus far. daughter wanted to hold dad's hand. rotoprone on park and patients hand released from constraint of the bed to allow access. no better or worsening of vs with bed on park in prone position. will continue to monitor.
--- NOTE | 2020-08-24 23:40 | NUR ---
brother otilia has arrived. both children at bedside. support given. all questions answered. garrett meeks was called to let him know they are ready to speak with him. vs are unchanged. patient is still on park for family contact. will continue to monitor
[2020-08-25] VITALS (23 sets, daily range): BP systolic 107–151; BP diastolic 51–81
[2020-08-25] MEDS: FENTANYL-0.9 % NACL/PF 100 ML IV PRN ×8 (00:16→22:07)
--- NOTE | 2020-08-25 00:35 | NUR ---
leonor carter np in to speak with children of patient. patient is now a DNR status. comfort care was discussed. when reviewing what children heard in the conversation, they have a clear understanding of what was discussed. understandably they would like some time to digest and think about what to plan for next. patient remains on park in prone position while children are holding patients hand and grieving. vs are unchanged so being in park while prone on rotoprone is not causing issues at this time Addendum: 08/25/20 at 0057 by Corona Wiggins RN dnr band signed by myself and relief charge nursenagi mark dnr band on left wrist
[2020-08-25] MEDS: sulfmethoxaz/trimethoprim inj 20 ML in dextrose 5%-water 230 ML IV SCH ×4 (01:43→20:22)
[2020-08-25] MEDS: mineral oil/petrolatum ophthal oint EACHEYE SCH ×5 (02:00→20:22)
[2020-08-25] MEDS: metoclopramide 5 mg/ml inj IV SCH ×4 (02:00→20:00)
--- NOTE | 2020-08-25 02:00 | NUR ---
patient back rotating prone. family went home. they want to return in the am with their mother/patients x- to say goodbyes and probably decide comfort care per the family. phone numbers up to date and exchanges as needed. family is aware patient could potentially code before they return. i promised to call them priya if any changes start occurring.
[2020-08-25] MEDS: insulin regular, human U-100 3ml vial - multi-dose SQ SCH ×4 (02:11→21:33)
[2020-08-25] MEDS: propofol 1000mg/100ml bottle 100 ML IV SCH ×7 (02:25→22:54)
[2020-08-25] MEDS: ipratropium/albuterol 3ml nebule NEB SCH ×6 (02:27→23:38)
[2020-08-25] MEDS: CISatracurium besylate inj. 100 MG in normal saline 100ml IV soln 90 ML IV PRN ×2 (02:49→06:15)
[2020-08-25 03:00] LABS: HEMOGLOBIN 7.5 g/dl (14.0-17.9); WHITE BLOOD COUNT 18.5 X10'3 (4.5-11.0)
[2020-08-25 03:03] LABS: BASOPHILS # (AUTO) 0.2 X10'3 (0-0.2); BASOPHILS % (AUTO) 0.9 % (0-1); EOSINOPHILS % (AUTO) 0 % (0-6); HEMATOCRIT 24.2 % (42.0-52.0); LYMPHOCYTES # (AUTO) 1.6 X10'3 (1.1-4.8); LYMPHOCYTES % (AUTO) 8.4 % (21-51); MEAN CORPUSCULAR HEMOGLOBIN 28.2 PG (27.0-31.0); MEAN CORPUSCULAR VOLUME 90.9 FL (78-98); MEAN PLATELET VOLUME 10.4 FL (7.4-10.4); MONOCYTES # (AUTO) 0.6 X10'3 (0-0.9); MONOCYTES % (AUTO) 3.4 % (2-12); NEUTROPHILS # (AUTO) 16.2 X10'3 (1.8-7.7); NEUTROPHILS % (AUTO) 87.3 % (42-75); PLATELET COUNT 197 X10'3 (140-440); RED BLOOD COUNT 2.66 X10'6 (4.70-6.10); RED CELL DISTRIBUTION WIDTH 20.3 % (11.5-14.5)
[2020-08-25 03:17] LABS: ALBUMIN 1.9 G/DL (3.4-5.0); ANION GAP 8 (8-16); BLOOD UREA NITROGEN 42 MG/DL (7-18); BUN/CREATININE RATIO 31.8 (5.4-32.0); CHLORIDE 113 MMOL/L (99-107); CREATININE 1.32 MG/DL (0.60-1.10); GLUCOSE 283 MG/DL (70-104); MAGNESIUM 2.6 MG/DL (1.5-2.4); PHOSPHORUS 1.9 MG/DL (2.3-4.5); POTASSIUM 4.3 MMOL/L (3.5-5.1); SODIUM 154 MMOL/L (135-145); TOTAL CARBON DIOXIDE 33.2 MMOL/L (24-32); TRIGLYCERIDES 440 MG/DL (20-135); eGFR 57 ML/MIN
[2020-08-25] MEDS: sodium phosphate inj. 15 MMOL in dextrose 5%-water 250 ML IV PRN (04:10)
[2020-08-25] MEDS: acetaminophen 325mg/10.15ml oral unit dose solution OGT PRN ×2 (04:28→17:09)
[2020-08-25] MEDS: midazolam 100mg in NS 100ml 100 ML IV PRN ×5 (04:46→22:53)
--- NOTE | 2020-08-25 04:50 | NUR ---
there was no official order for cxr this am - i am pushing this off until dr velazquez arrives and deems the cxr needed. currently it would seem to be more detrimental to turn this patient for a chest xray than to not get one the given the situation. i have updated nurse charge rn Hyacinth paez with this information. also - no abg was officially ordered - since there seems to be no further avenues for vent treatments - the abg seems pointless. i am not pushing the issue. will have days rn f/u with these issues with dr velazquez.
[2020-08-25 05:00] LABS: ANISOCYTOSIS 3+; NUCLEATED RED BLOOD CELLS 4 /100WBC (0-0); PLATELET ESTIMATE NORMAL; TOTAL CELLS COUNTED 100
[2020-08-25 05:01] LABS: HYPOCHROMASIA 1+; LARGE PLATELETS FEW; POLYCHROMASIA FEW; STOMATOCYTES 1+
--- NOTE | 2020-08-25 06:28 | NUR ---
Patient in room ICU 2039. I have received report from Corona VILLANUEVA and had the opportunity to ask questions and assume patient care. Addendum: 08/25/20 at 0628 by Juanita Head RN Amended: Links added.
--- NOTE | 2020-08-25 07:15 | NUR ---
[facility] called. Spoke with Scotty. Ref.#: [id number].
[2020-08-25] MEDS: meropenem inj 1 GM in normal saline 100ml IV soln 100 ML IV SCH ×2 (07:41→15:28)
[2020-08-25] MEDS: pantoprazole 40 MG vial IV SCH ×2 (07:42→20:35)
[2020-08-25] MEDS: furosemide 20 MG/2 ML vial IV SCH (07:42)
[2020-08-25] MEDS: gabapentin 300mg capsule OGT SCH ×2 (07:42→20:37)
[2020-08-25] MEDS: lactobacillus rhamnosus 10,000 MMU CELLS/CAPSULE PO SCH ×2 (07:42→20:38)
[2020-08-25] MEDS: loratadine 10mg tablet OGT SCH (07:42)
[2020-08-25] MEDS: folic acid 1mg/0.2ml inj IV SCH (07:42)
[2020-08-25] MEDS: heparin, porcine 5000 units/ml vial SQ SCH ×2 (07:43→20:37)
[2020-08-25] MEDS: fluticasone nasal spray 16GM bottle NS SCH (08:00)
[2020-08-25] MEDS: lisinopril 20mg tablet OGT SCH (08:00)
[2020-08-25] MEDS: K and/or MAG REPLACEMENT MC SCH ×2 (08:00→20:00)
[2020-08-25] MEDS: WATER IV SCH (08:19)
[2020-08-25] MEDS: METHYLPREDNISOLONE SOD SUCC IV SCH (08:19)
[2020-08-25] MEDS: DEXTROSE 5% IV SCH (08:19)
[2020-08-25] MEDS: docusate sodium 100mg/10ml UD cup OGT SCH ×2 (08:21→20:00)
[2020-08-25] MEDS: fluconazole-Diflucan 200mg/NS 100 ML IV SCH ×2 (08:56→20:35)
[2020-08-25] MEDS: azithromycin/NS 500mg/250ml 250 ML IV SCH (09:29)
--- NOTE | 2020-08-25 10:04 | NUR ---
ROUNDS NOTE: Dr. Peng aware of no CXR or ABG this morning and agrees. Stated he can meet with family this morning after rounds. Stated to stop Nimbex now and to stop rotating pt,. however, stopping rotation could potentially result in for pt. so that will not be initiated until family get to see pt. today. Charge Nurse aware.
[2020-08-25] MEDS: thiamine inj. 100 MG, MVI, adult No.4 with vit. K 10 ML in dextrose 5% water 500ml 500 ML IV SCH ×3 (10:10)
--- NOTE | 2020-08-25 10:13 | NUR ---
Called and left for son Brian to come to the hospital this morning per Dr. Peng's request.
--- NOTE | 2020-08-25 10:22 | NUR ---
VM left for patient's daughter Marianela as well.
--- NOTE | 2020-08-25 10:38 | NUR ---
Spoke with mother of Keri (pt's ex-) to relay message that Dr. Peng would like to talk with them this morning.
[2020-08-25] MEDS ORDERED: Neutra Phos packet OGT PRN (11:15)
--- NOTE | 2020-08-25 11:26 | NUR ---
Daughter Marianela called back and stated she and Brian are on their way to see pt.
--- NOTE | 2020-08-25 16:09 | NUR ---
Son Brian and daughter Marianela here to see patient.
--- NOTE | 2020-08-25 16:12 | NUR ---
RN called Dr. Peng for the pt's children to talk to him. Talking on the phone now.
--- NOTE | 2020-08-25 16:35 | NUR ---
Keri stated that pt's sister is coming from [facility] tomorrow to say good bye to pt. and that Dr. Peng said we could keep pt on the Rotoprone bed until then. RN relayed the info. to charge nurse who informed Keri that the sister may not be able to visit due to the Covid restrictions but rather could use the video chat to see pt. Keri acknowledged the information.
--- NOTE | 2020-08-25 16:41 | NUR ---
RN just explained to Brian and Marianela the risks of placing pt. in the supine position and that staff have delayed supining pt. until they were able to get here today. Brian stated he understood and said to "do what you guys have to do". Daughter, Marianela, "stated the doctor was rude to her on the phone and he needs to be nicer to people". Charge nurse aware of situation.
--- NOTE | 2020-08-25 17:17 | NUR ---
Pt's ex- Stephanie saying good-bye to patient on the daughter's phone.
--- NOTE | 2020-08-25 18:00 | NUR ---
Problems reprioritized. Patient report given, questions answered & plan of care reviewed with Corona VILLANUEVA.
--- NOTE | 2020-08-25 18:30 | NUR ---
report received from jessica lazar. son and daughter at patient side holding hand/sharing photos of family. patient is parked prone at center. vs are unchanged from the usually last 12 hours or so. after introducing myself and reviewing shift goals with patients children, i realized the very strong odor of marijuana on their persons. children are calm and compliant. there is no disruption of the environment and children are cordial and compliant and in need of support. monitoring for issues - none at this time. i have reviewed with children the need to turn patient supine as he has had no nursing care or repositioning in the bed for more than 24 hours. in viewing patient , he is in dire need of being repositioned in the rotoprone. his bady is out of alignment, he needs to be pulled up toward the head of the bed etc. children are aware that patient may not tolerate the turn supine. they are ok with me attempting the turn. we also discussed that the family will be together tomorrow and speak to dr velazquez about comfort care. waiting on this patients sister who is coming from [address] ([place] or [place] - we are unsure??). They are aware we can allow the patients sister in to physically see patient due to covid restrxns. also are aware their mom/patients x- can not come in tomorrow for same reasoning. we decided to supine patient near 1999. Addendum: 08/26/20 at 0120 by Corona Wiggins RN clarification - "aware the sister can NOT physically come in to see patient due to covid resrtxn.
--- NOTE | 2020-08-25 20:00 | NUR ---
patient was turned supine in bed at 1945. currently vs are unchanged with o2 sats actually up to 87 % at some times - maintains o2 sats 81-87 %. other vss. patient does not have a cough still. sxn for small amount clear/white. crackles b/l and diminished. after turned supine - noticed left chest is considerably more inflated / higher than the right. this may be related to the poor positioning in the bed while prone for so long. will continue to monitor. I pointed this out to RT Lefty as well - we will both monitor this. since patient tolerating with vs unchanged from proning, i have completed a full chg bath, rayo care, rectal tube balloon let down, and flushed, lacrilube and new gauze to b/l eyes . i have taped them shut because this time when i removed, both were excessively dry. mouth care given. back of head assessed for breakdown - cdi. turned and new draw sheet and dryflow.. back washed, periarea cleansed. no s/sx breakdown. optifoam to sacrum
[2020-08-25] MEDS: polyethylene glycol 3350 17gm powd pack OGT SCH (20:38)
[2020-08-25] MEDS: atorvastatin 10mg tablet OGT SCH (20:38)
[2020-08-25] MEDS: NORepinephrine 8mg/ 250ml NS 250 ML IV SCH (20:39)
--- NOTE | 2020-08-25 21:30 | NUR ---
son otilia left for home near 2029. kaela has just left now. patient has been supine still since 1945. since he is tolerating it, i am now rotating supine. vs are same as they have been. will continue to monitor. patient has started to have a very mild cough with sxn. also noting that patient is starting to do a hiccup like motion with upper chest/neck. as i recall, this was the same issue patient was doing just before being paralyzed last week. o2 sats are maintaining high 70 to low 80 's%. this hiccup motion is cause pips to run high and alarms frequently on vent. ett sxn'd for scant to no secretions. difficult to get the sxn catheter completely down ett at times. must keep making ett perpendicular to face during sxn. at times that doesnt even work - perhaps the position of the bed at the time is effecting this. rt aware i was running into this problem.
[2020-08-25] MEDS: insulin glargine (Lantus) pen - multi-dose SQ SCH (21:32)
[2020-08-26] VITALS (23 sets, daily range): BP systolic 111–179; BP diastolic 36–99
--- NOTE | 2020-08-26 00:28 | NUR ---
i have left patient rotating supine because his vs are unchanged. no better .no worse supine vs prone. just frequently alarms for high pip's. also i am not re-proning patient - he is no longer paralyzed. with the frequent hiccups already, proning may just aggravate the situation. i meant to mention in my earlier note that before daughter left, she was planning on being here in icu feather separator so that she and her family can discuss with dr velazquez comfort care. per both otilia and kaela - they just wanted to wait for patient sister to arrive before drastic changes. besides sats being in 80's% - vs otherwise stable. no levophed gtt. maxed diprivan, maxed fentanyl and maxed versed gtt. no apparent distress/pain/fear/discomfort. frequently orienting patient to time and events. there is no response from the patient physically.
[2020-08-26] MEDS: meropenem inj 1 GM in normal saline 100ml IV soln 100 ML IV SCH ×4 (00:43→23:57)
[2020-08-26] MEDS: FENTANYL-0.9 % NACL/PF 100 ML IV PRN ×9 (00:44→22:15)
[2020-08-26] MEDS: propofol 1000mg/100ml bottle 100 ML IV SCH ×6 (01:10→20:46)
--- NOTE | 2020-08-26 01:21 | NUR ---
follow up to earlier assessment of chest - patient chest appears equal b/l since the fist assessment
[2020-08-26] MEDS: metoclopramide 5 mg/ml inj IV SCH ×4 (02:00→20:00)
[2020-08-26] MEDS: sulfmethoxaz/trimethoprim inj 20 ML in dextrose 5%-water 230 ML IV SCH ×4 (02:27→20:34)
[2020-08-26] MEDS: mineral oil/petrolatum ophthal oint EACHEYE SCH ×4 (02:27→20:02)
[2020-08-26] MEDS: insulin regular, human U-100 3ml vial - multi-dose SQ SCH ×4 (02:37→20:18)
[2020-08-26] MEDS: ipratropium/albuterol 3ml nebule NEB SCH ×6 (02:45→23:09)
[2020-08-26 02:58] LABS: MAGNESIUM 2.6 MG/DL (1.5-2.4)
[2020-08-26] MEDS: midazolam 100mg in NS 100ml 100 ML IV PRN ×5 (03:00→20:46)
--- NOTE | 2020-08-26 03:02 | NUR ---
REVIEWED WITH TAMI FROM RT THAT I RE-ADJUSTED THE ALARM LIMITS FOR PEAK PRESSURING.THE CONSTANT ALARMING IS UNSAFE/ALARM FATIGUE AND PROBABLY IRRITATING TO THE PATIENT. I AM AWARE OF PEAK PRESSURES, THERE IS NO REMEDY. THIS PATIENT IS A 1:1. I AM IN THE ROOM AT ALL TIMES. MONITORING CLOSELY AT ALL TIMES.
[2020-08-26 03:19] LABS: BASOPHILS # (AUTO) 0.2 X10'3 (0-0.2); EOSINOPHILS % (AUTO) 0 % (0-6); MEAN CORPUSCULAR HEMOGLOBIN 27.5 PG (27.0-31.0); MEAN CORPUSCULAR HGB CONC 30.2 g/dL (33.0-36.5); PLATELET COUNT 203 X10'3 (140-440)
[2020-08-26 03:21] LABS: BASOPHILS % (AUTO) 0.7 % (0-1); HEMATOCRIT 22.7 % (42.0-52.0); LYMPHOCYTES # (AUTO) 1.4 X10'3 (1.1-4.8); LYMPHOCYTES % (AUTO) 6.2 % (21-51); MEAN CORPUSCULAR VOLUME 90.8 FL (78-98); MEAN PLATELET VOLUME 10.7 FL (7.4-10.4); MONOCYTES # (AUTO) 1.4 X10'3 (0-0.9); MONOCYTES % (AUTO) 6.1 % (2-12); NEUTROPHILS # (AUTO) 19.1 X10'3 (1.8-7.7); RED CELL DISTRIBUTION WIDTH 20.3 % (11.5-14.5)
[2020-08-26 03:25] LABS: HEMOGLOBIN 6.9 g/dl (14.0-17.9)
[2020-08-26 03:27] LABS: ALBUMIN 2.1 G/DL (3.4-5.0); ANION GAP 2 (8-16); BLOOD UREA NITROGEN 54 MG/DL (7-18); BUN/CREATININE RATIO 35.1 (5.4-32.0); CHLORIDE 114 MMOL/L (99-107); CREATININE 1.54 MG/DL (0.60-1.10); GLUCOSE 318 MG/DL (70-104); PHOSPHORUS 3.3 MG/DL (2.3-4.5); POTASSIUM 4.5 MMOL/L (3.5-5.1); SODIUM 151 MMOL/L (135-145); TOTAL CARBON DIOXIDE 35.3 MMOL/L (24-32); eGFR 47 ML/MIN
--- NOTE | 2020-08-26 04:16 | NUR ---
PATIENTS SISTER CECILLE IN TO SEE PATIENT FOR SHORT VISIT AND HAS GONE TO FIND A HOTEL. CECILLE IS AWARE OF THE MEETING WITH DR LIMA TOMORROW TO DISCUSS PATIENT STATUS. PATIENT CURRENTLY WITH VSS EXCEPT O2 SATS 79-81%. ROTATING SUPINE. NO S/SX PAIN/DISTRESS/FEAR/DISCOMFORT.
--- NOTE | 2020-08-26 06:27 | NUR ---
Patient in room ICU 2039. I have received report from Corona VILLANUEVA and had the opportunity to ask questions and assume patient care. Addendum: 08/26/20 at 0627 by Juanita Head RN Amended: Links added.
[2020-08-26] MEDS: furosemide 20 MG/2 ML vial IV SCH (07:12)
[2020-08-26] MEDS: loratadine 10mg tablet OGT SCH (07:12)
[2020-08-26] MEDS: acetaminophen 325mg/10.15ml oral unit dose solution OGT PRN ×2 (07:12→15:14)
[2020-08-26] MEDS: lactobacillus rhamnosus 10,000 MMU CELLS/CAPSULE PO SCH ×2 (07:12→20:03)
[2020-08-26] MEDS: docusate sodium 100mg/10ml UD cup OGT SCH ×2 (07:12→20:00)
[2020-08-26] MEDS: heparin, porcine 5000 units/ml vial SQ SCH ×2 (07:13→20:03)
[2020-08-26] MEDS: gabapentin 300mg capsule OGT SCH ×2 (07:13→20:04)
[2020-08-26] MEDS: pantoprazole 40 MG vial IV SCH ×2 (07:13→20:31)
[2020-08-26] MEDS: lisinopril 20mg tablet OGT SCH (07:13)
[2020-08-26] MEDS: methylnaltrexone br 12mg/0.6ml inj***SubQ only SQ SCH (07:14)
[2020-08-26] MEDS: fluticasone nasal spray 16GM bottle NS SCH (07:14)
[2020-08-26] MEDS: folic acid 1mg/0.2ml inj IV SCH (07:15)
[2020-08-26] MEDS: K and/or MAG REPLACEMENT MC SCH ×2 (07:32→20:00)
--- NOTE | 2020-08-26 07:43 | NUR ---
Medicated with Tylenol for temp 38.2. Pt. tolerating rotating and being supine.
[2020-08-26] MEDS: METHYLPREDNISOLONE SOD SUCC IV SCH (07:51)
[2020-08-26] MEDS: WATER IV SCH (07:51)
[2020-08-26] MEDS: DEXTROSE 5% IV SCH (07:51)
[2020-08-26] MEDS: fluconazole-Diflucan 200mg/NS 100 ML IV SCH ×2 (08:18→20:02)
--- NOTE | 2020-08-26 09:54 | NUR ---
Daughter just called and stated her, her brother and aunt are on their way here to see pt. Dr. Peng present during phone call and confirmed he arranged a meeting with them today. Charge nurse aware.
[2020-08-26] MEDS: azithromycin/NS 500mg/250ml 250 ML IV SCH (10:27)
[2020-08-26] MEDS: thiamine inj. 100 MG, MVI, adult No.4 with vit. K 10 ML in dextrose 5% water 500ml 500 ML IV SCH ×3 (10:27)
--- NOTE | 2020-08-26 10:29 | NUR ---
Patient's sister Aida here to see pt. and speak with Dr. Peng.
[2020-08-26 11:12] LABS: ANISOCYTOSIS 3+; NUCLEATED RED BLOOD CELLS 2 /100WBC (0-0); PLATELET ESTIMATE NORMAL; TOTAL CELLS COUNTED 100
[2020-08-26 11:13] LABS: HYPOCHROMASIA 1+; POLYCHROMASIA FEW
[2020-08-26 11:14] LABS: LARGE PLATELETS FEW; SMUDGE CELLS FEW; STOMATOCYTES 3+
--- NOTE | 2020-08-26 11:22 | NUR ---
Son Brian and daughter Marianela here. RN called and let Dr. Peng know. Sedation turned off per Dr. Peng.
--- NOTE | 2020-08-26 11:26 | NUR ---
director of food and nutrition services paged for family support. Awaiting call back.
--- NOTE | 2020-08-26 11:39 | NUR ---
Reassessment: Intubated, sedated. On rotoprone. Tolerating Tube feeding at goal rate. Copious stool output, now has rectal tube, output 700 ml 08/25. Colace was held with high volume stool output, has been receiving dose early am and being held during the day d/t high stool output . Sodium 151, receiving 200ml q 4 hour water flushes. Rec: 1. OGTF per MD using Vital High Protein at 85ml/hr goal. To provide 2040ml volume, 2040 kcals, 1714ml free water, and 179g protein. 2. additional water flush 200ml q 4 hours 3. PALB Q /; daily wts 4. bowel care as needed, hold with copious stool output 5. thiamin, folic, MVI for etoh hx Addendum: 08/26/20 at [address] Amended: Links added.
--- NOTE | 2020-08-26 11:41 | NUR ---
welfare case worker here. Dr. Peng talking with family. Family wants bone marrow biopsy to find out if pt. has systemic mastocytosis. Dr. Peng left message for pathologist.
--- NOTE | 2020-08-26 13:14 | NUR ---
RN has asked family multiple times to leave as they exceeded the allotted time to visit per charge nurse. Aida, patient's sister began to argue with Brian (pt's son) about personal family drama. RN was about to call charge nurse and/or security to escort sister but she eventually, Aida and Marianela left and RN allowed pt's son, Brian to stay with patient as the son's time with his dad was monopolized by the other two visitors. Aida. (pt's sister) asked Dr. Peng for the bone biopsy while the son Brian would rather not have it done. RN told Brian the decision was up to him as next of kin and not his aunt. Brian stated he will "just do what the aunt and sister want as he will have to hear about it for the rest of his life." Charge nurse aware.
--- NOTE | 2020-08-26 14:23 | NUR ---
Dr. Brown called re. bone biopsy. Stated the test violates the Hippocratic Oath and he will not be performing it. RN provided Dr. Brown with patient's son Brian's number so he could relay the info. to him.
--- NOTE | 2020-08-26 14:26 | NUR ---
RN called Brian to confirm that he spoke with Dr. Brown and knew bone biopsy would not happen. He said they spoke and he understood. RN told Brian to let her know when he was ready to make patient comfort care.
--- NOTE | 2020-08-26 15:47 | NUR ---
Medicated once again for increased temp of 38.5.
--- NOTE | 2020-08-26 18:04 | NUR ---
Problems reprioritized. Patient report given, questions answered & plan of care reviewed with Corona VILLANUEVA.
--- NOTE | 2020-08-26 18:30 | NUR ---
REPORT RECEIVED FROM KAY JACOME. PATIENTS VS ARE UNCHANGED FROM THEN DAY SHIFT. HEMODYNAMICALLY STABLE. SATS 70'S. ON PARK UPON ARRIVAL - I HAVE STARTED SUPINE ROTATION BACK UP.
[2020-08-26] MEDS: polyethylene glycol 3350 17gm powd pack OGT SCH (20:04)
[2020-08-26] MEDS: atorvastatin 10mg tablet OGT SCH (20:04)
[2020-08-26] MEDS: insulin glargine (Lantus) pen - multi-dose SQ SCH (20:15)
[2020-08-27] VITALS (16 sets, daily range): BP systolic 86–138; BP diastolic 34–73
--- NOTE | 2020-08-27 00:39 | NUR ---
NIMBEX GTT HAS BEEN OFF SINCE 08/25/2020 @ 13:39. CURRENTLY PATIENT IS MAX SEDATED/PAIN MED GTT'S BUT HAS 4/4 TWITCHES USING FACIAL NERVE W/ TO4. PATIENT DOES NOT OVER BREATH VENT, DOES NOT HAVE CORNEAL REFLEXES. NO COUGH OR GAG. PATIENT. NO SPONTANEOUS MVMT. THE ONLY MOVEMENT NOTED IS THE HICCUP/STACKING BREATHS. THIS IS OCCURRING IN WAVES OF ABOUT 20 MIN. CURRENTLY NOT DOING IT. VIGILANTLY KEEPING EYES MOIST WITH LACRILUBE. THEY DRY QUICKLY. THEY ARE CLOSED NOW - NO NEED TO TAPE EYES CLOSED AT THIS TIME. THEY STILL DRY QUICKLY. Addendum: 08/27/20 at 0107 by Corona Wiggins RN FORGOT TO MENTION -PUPILS MITZY AND SLUGGISH, ~ 2MM.
[2020-08-27] MEDS: FENTANYL-0.9 % NACL/PF 100 ML IV PRN ×5 (01:30→13:57)
[2020-08-27] MEDS: mineral oil/petrolatum ophthal oint EACHEYE SCH ×3 (01:31→14:00)
[2020-08-27] MEDS: metoclopramide 5 mg/ml inj IV SCH ×3 (01:31→14:00)
[2020-08-27] MEDS: sulfmethoxaz/trimethoprim inj 20 ML in dextrose 5%-water 230 ML IV SCH (01:37)
[2020-08-27] MEDS: propofol 1000mg/100ml bottle 100 ML IV SCH ×4 (01:37→13:03)
[2020-08-27] MEDS: insulin regular, human U-100 3ml vial - multi-dose SQ SCH ×2 (02:28→07:46)
[2020-08-27] MEDS: NORepinephrine 8mg/ 250ml NS 250 ML IV SCH (02:34)
[2020-08-27 02:55] LABS: BASOPHILS # (AUTO) 0.1 X10'3 (0-0.2); EOSINOPHILS % (AUTO) 0 % (0-6); MEAN CORPUSCULAR HGB CONC 30.9 g/dL (33.0-36.5); MONOCYTES # (AUTO) 1.1 X10'3 (0-0.9)
[2020-08-27 02:57] LABS: BASOPHILS % (AUTO) 0.6 % (0-1); LYMPHOCYTES # (AUTO) 2.3 X10'3 (1.1-4.8); LYMPHOCYTES % (AUTO) 9.6 % (21-51); MEAN CORPUSCULAR HEMOGLOBIN 28.3 PG (27.0-31.0); MEAN CORPUSCULAR VOLUME 91.5 FL (78-98); MEAN PLATELET VOLUME 10.7 FL (7.4-10.4); MONOCYTES % (AUTO) 4.6 % (2-12); NEUTROPHILS # (AUTO) 20.9 X10'3 (1.8-7.7); NEUTROPHILS % (AUTO) 85.2 % (42-75); PLATELET COUNT 203 X10'3 (140-440); RED BLOOD COUNT 2.25 X10'6 (4.70-6.10); RED CELL DISTRIBUTION WIDTH 20.5 % (11.5-14.5); WHITE BLOOD COUNT 24.5 X10'3 (4.5-11.0)
[2020-08-27 03:03] LABS: ANION GAP 6 (8-16); BLOOD UREA NITROGEN 66 MG/DL (7-18); BUN/CREATININE RATIO 36.5 (5.4-32.0); CALCIUM 7.9 MG/DL (8.5-10.1); CHLORIDE 118 MMOL/L (99-107); CREATININE 1.81 MG/DL (0.60-1.10); GLUCOSE 245 MG/DL (70-104); MAGNESIUM 2.7 MG/DL (1.5-2.4); POTASSIUM 4.9 MMOL/L (3.5-5.1); TOTAL CARBON DIOXIDE 34.4 MMOL/L (24-32); eGFR 39 ML/MIN
[2020-08-27] MEDS: ipratropium/albuterol 3ml nebule NEB SCH ×4 (03:05→15:38)
[2020-08-27 03:08] LABS: SODIUM 158 MMOL/L (135-145)
[2020-08-27 03:16] LABS: HEMATOCRIT 20.6 % (42.0-52.0); HEMOGLOBIN 6.4 g/dl (14.0-17.9)
[2020-08-27 03:55] LABS: ABG BASE EXCESS 7.2 mmol/L (-2.0-2.0); ABG HCO3 35.2 mmol/L (22.0-26.0); ABG OXYGEN SATURATION 79.6 % (94-97); ABG PCO2 (T) 81.6 mmHg (35.0-48.0); ABG PO2 (T) 57.1 mmHg (75.0-100.0); ALLEN'S TEST POSITIVE; FCOHb 0.1 % (0.0-3.9); FMetHb 0.3 % (0.0-1.5); FO2Hb 79.3 % (94-97); PATIENT TEMPERATURE 37.5; PEEP 10 cm H2O; RESPIRATORY RATE 24 b/min; TIDAL VOLUME 450 mL; TOTAL HEMOGLOBIN 7.2 G/dl (14.0-18.0)
[2020-08-27] MEDS: midazolam 100mg in NS 100ml 100 ML IV PRN ×3 (04:01→13:56)
[2020-08-27 07:00] LABS: NUCLEATED RED BLOOD CELLS 3 /100WBC (0-0); TOTAL CELLS COUNTED 100
[2020-08-27 07:01] LABS: ANISOCYTOSIS 3+; PLATELET ESTIMATE NORMAL
[2020-08-27 07:02] LABS: HYPOCHROMASIA 1+; POLYCHROMASIA FEW; STOMATOCYTES 2+
[2020-08-27] MEDS: meropenem inj 1 GM in normal saline 100ml IV soln 100 ML IV SCH ×2 (07:24→16:00)
[2020-08-27] MEDS: pantoprazole 40 MG vial IV SCH (07:30)
[2020-08-27] MEDS: fluticasone nasal spray 16GM bottle NS SCH (07:30)
[2020-08-27] MEDS: WATER IV SCH ×3 (07:30→14:00)
[2020-08-27] MEDS: METHYLPREDNISOLONE SOD SUCC IV SCH (07:30)
[2020-08-27] MEDS: fluconazole-Diflucan 200mg/NS 100 ML IV SCH (07:30)
[2020-08-27] MEDS: DEXTROSE 5% IV SCH (07:30)
[2020-08-27] MEDS: heparin, porcine 5000 units/ml vial SQ SCH (07:31)
[2020-08-27] MEDS: folic acid 1mg/0.2ml inj IV SCH (07:31)
[2020-08-27] MEDS: furosemide 20 MG/2 ML vial IV SCH (07:31)
[2020-08-27] MEDS: loratadine 10mg tablet OGT SCH (07:32)
[2020-08-27] MEDS: lactobacillus rhamnosus 10,000 MMU CELLS/CAPSULE PO SCH (07:32)
[2020-08-27] MEDS: gabapentin 300mg capsule OGT SCH (07:32)
[2020-08-27] MEDS: lisinopril 20mg tablet OGT SCH (07:32)
[2020-08-27] MEDS: docusate sodium 100mg/10ml UD cup OGT SCH (07:34)
[2020-08-27] MEDS: K and/or MAG REPLACEMENT MC SCH (08:00)
[2020-08-27] MEDS: [UNRECOGNIZED DRUG - OTHER] IV SCH ×2 (08:26→14:00)
[2020-08-27] MEDS: TRIMETHOPRIM IV SCH ×2 (08:26→14:00)
[2020-08-27] MEDS: DEXTROSE IV SCH ×2 (08:26→14:00)
--- NOTE | 2020-08-27 08:30 | NUR ---
Per radiologist, ett at teto; will pull from 25 to 23cm with RT
[2020-08-27] MEDS: thiamine inj. 100 MG, MVI, adult No.4 with vit. K 10 ML in dextrose 5% water 500ml 500 ML IV SCH ×3 (09:51)
[2020-08-27] MEDS: azithromycin/NS 500mg/250ml 250 ML IV SCH (09:51)
--- NOTE | 2020-08-27 10:12 | NUR ---
During rounds, Dr. Peng aware of o2 saturations in the 70/80s on FiO2 100 and PEEP 10, patient continues to be on Rotoprone with supine settings. Also, MD aware of Hgb 6.4 this AM with increase to 7.2 on ABG afterwards; no new orders other than to recheck in the AM. For critical Na 158, start D5W at 150ml/hr and continue PO water flushes as orders. MD aware of drop in urine output and small response to Lasix, Cr. up to 1.8. Dr. Peng to call son to discuss prognosis and plan of care.
[2020-08-27] MEDS ORDERED: dextrose 5%-water 1,000 ML IV SCH (11:30)
[2020-08-27] MEDS ORDERED: morphine 10mg/0.5ml (conc. morphine) oral syringe PO PRN (12:15)
[2020-08-27] MEDS ORDERED: LORazepam 2 mg/ml vial IV PRN (12:15)
[2020-08-27] MEDS ORDERED: morphine 10mg/ml inj. IV PRN (12:15)
--- NOTE | 2020-08-27 14:02 | NUR ---
Patient comfort care and waiting for family before extubating; continue sedation/pain medications to keep ventilator and patient comfortable; MD aware we're waiting for family before stopping sedation as we do not know what time family will arrive.
--- NOTE | 2020-08-27 17:45 | NUR ---
Patient extubated to comfort to comfort care at 1740; all sedation off. Son and daughter at the bedside.
--- NOTE | 2020-08-27 18:01 | NUR ---
RN IS TO DOCUMENT YES TO ALL APPLICABLE AREAS Pronouncement of : 1. Time Physician Notified: 1800 2. Date of : 08-27-2020 3. Time of : 1800 4. DNR/Withdraw life support documented: Yes 5. Monitor strip has been placed on chart: Yes 6. Assessment process is of one-minute duration and includes following criteria: a) Patient is unresponsive to all stimuli: Yes b) Pupils fixed and non-reactive:Yes c) Auscultation of precordium reveals absence of heart tones:Yes d) Auscultation of lungs reveals absence of breath sounds:Yes e) Absence of blood pressure / all vital signs:Yes f) QRS complexes are not present on monitor / EKG strip:Yes g) Pacer spikes without capture:Yes 4. Comments: 2 RN with Marce Uribe RN
--- NOTE | 2020-08-27 18:20 | NUR ---
Patient in room ICU 2039. I have received report from Clarita VILLANUEVA and had the opportunity to ask questions and assume patient care. Patient's family in room saying final good-bye. Patient passed at 1801. Donor Network needs to be contacted.
--- NOTE | 2020-08-27 18:34 | NUR ---
Problems reprioritized. Patient report given, questions answered & plan of care reviewed with Trang VILLANUEVA. Oncoming RN to call donor network and [facility].
--- NOTE | 2020-08-27 18:49 | NUR ---
Donor network called. Tissue team will return call in 10-15 min.
--- NOTE | 2020-08-27 18:55 | NUR ---
[facility] contacted. Son and daughter's information was passed on to them as contact for the patient.
== END 2020-08-27 18:08 | disposition expired | DRG 720 ==
LOC: ER 12:07 → ED HOLD 14:46 → PCU 3S 17:00 → ICU 2S 08-17 01:55
PROVIDERS: ADMIT Internal Medicine; ATTEND Internal Medicine
PROC: 5A09457 Assistance with Respiratory Ventilation, 24-96 Consecutive Hours, Continuous Positive Airway Pressure (ICD-10-PCS; 2020-08-12)
PROC: 5A09357 Assistance with Respiratory Ventilation, Less than 24 Consecutive Hours, Continuous Positive Airway Pressure (ICD-10-PCS; 2020-08-16)
PROC: 5A1955Z Respiratory Ventilation, Greater than 96 Consecutive Hours (ICD-10-PCS; principal; 2020-08-17)
PROC: 0BH17EZ Insertion of Endotracheal Airway into Trachea, Via Natural or Artificial Opening (ICD-10-PCS; 2020-08-17)
DX: A41.9 Sepsis, unspecified organism (principal); I12.9 Hypertensive chronic kidney disease with stage 1 through stage 4 chronic kidney disease, or unspecified chronic kidney disease; J18.9 Pneumonia, unspecified organism; J96.01 Acute respiratory failure with hypoxia; E87.2 Acidosis; N17.9 Acute kidney failure, unspecified; Z20.828 Contact with and (suspected) exposure to other viral communicable diseases; Z66 Do not resuscitate; D64.9 Anemia, unspecified; R65.21 Severe sepsis with septic shock; N18.9 Chronic kidney disease, unspecified; E78.5 Hyperlipidemia, unspecified; F10.239 Alcohol dependence with withdrawal, unspecified; E78.00 Pure hypercholesterolemia, unspecified; F12.90 Cannabis use, unspecified, uncomplicated; G47.00 Insomnia, unspecified; G89.29 Other chronic pain; K21.9 Gastro-esophageal reflux disease without esophagitis; M54.9 Dorsalgia, unspecified; Z87.442 Personal history of urinary calculi; Z88.8 Allergy status to other drugs, medicaments and biological substances; Z79.899 Other long term (current) drug therapy
CPT/HCPCS: 36415; 36600; 71045; 74018; 80048; 80053; 80202; 81001; 82140; 82150; 82570; 82803; 82948; 83520; 83605; 83615; 83690; 83735; 83880; 84100; 84132; 84134; 84145; 84156; 84478; 85007; 85008; 85018; 85025; 85651; 86060; 86160; 86256; 86703; 87040; 87070; 87081; 87207; 87502; 87503; 87635; 93005; 93306; 94002; 94003; 94640; 94660; 94668; 94760; 94799; 96374; 99285; C9113; C9803; G0378; J0131; J0456; J0696; J1450; J1630; J1644; J1720; J1815; J1940; J2060; J2185; J2212; J2270; J2543; J2560; J2704; J2765; J2930; J3010; J3370; J3411; J3475; J3480; J3490; J7030; J7050; J7060; J7070; J7614; P9047